=== PATIENT | female | born 1955 | race Caucasian/White ===

== ENCOUNTER → 2018-01-11 | Outpatient (CLI) | payer OTHER ==
[2018-01-11 16:26] VITALS: BP 105/72; PULSE 70; TEMP 97.3; BMI 36.8
--- NOTE | 2018-01-11 17:06 | P.HPOB ---
History of Present Illness H&P Date: 01/11/18 Chief Complaint: The patient is here for her routine gynecologic exam and mammogram. This is a 62-year-old G0 with an LMP of approximately 2005. The patient is without gynecologic complaints. She states she has not been sexually active for many years. She had an abnormal Pap smear on 01/26/2017 which showed ascus and had a negative high-risk HPV reflex. I had recommended to repeat the path with HPV testing after 2 to 3 years, but she feels strongly that she would like to have the Pap smear repeated today. I had recommended a colonoscopy last year when she had heme positive stool. She states she did not have it done because she had an emergency gallbladder surgery. Her surgeon then left town. She states her primary caregiver is now arranging for colonoscopy to be done by Dr. Walters. Review of Systems The patient has gained about 17 pounds over the last year. She denies respiratory or cardiac problems. G.I.: she has had some belching type gas intermittently. She also states she has been less energetic recently. Past Medical History Past Medical History: Fibromyalgia, GERD/Reflux, Osteoarthritis (OA), Thyroid Disorder (Hypothyroid) Additional Past Medical History / Comment(s): diverticulosis, degenerative disc disease in her back and neck, migraines, and diverticular disease. 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 History of Any Multi-Drug Resistant Organisms: None Reported Past Surgical History: Bowel Resection, Cholecystectomy, Tonsillectomy Additional Past Surgical History / Comment(s): Ganglion cyst removed from left ankle, rectal cysts removed Past Anesthesia/Blood Transfusion Reactions: No Reported Reaction Past Psychological History: ADD/ADHD, Anxiety, Depression Smoking Status: Never smoker Past Alcohol Use History: None Reported Past Drug Use History: None Reported Additional History: She is single and is not seeing anybody at this time and is not sexually active. She is disabled. - Past Family History Mother Family Medical History: Cancer (Renal and lung cancer.), CVA/TIA Additional Family Medical History / Comment(s): kidney cancer Father Family Medical History: Myocardial Infarction ([place]) Brother(s) Family Medical History: Diabetes Mellitus Medications and Allergies Home Medications Medication Instructions Recorded Confirmed Type Butalb/APAP/Caff 50-325-40Mg 1 tab PO BID PRN 03/03/17 01/11/18 History [Fioricet 50-325-40] Cyclobenzaprine [Flexeril] 10 mg PO BID PRN 03/03/17 01/11/18 History Ergocalciferol [Vitamin D2] 50,000 unit PO Q14D 03/03/17 01/11/18 History HYDROcodone/APAP 7.5-325MG [[place] 1 tab PO BID PRN 03/03/17 01/11/18 History 7.5-325] Levothyroxine Sodium [Synthroid] 125 mcg PO DAILY 03/03/17 01/11/18 History Methylphenidate HCl [Ritalin] 20 mg PO TID 03/03/17 03/03/17 History Multivitamins, Thera [Multivitamin 1 tab PO DAILY 03/03/17 01/11/18 History (formulary)] [place]-3 Fatty Acids [[place]-3] 1,000 mg PO DAILY 03/03/17 01/11/18 History Omeprazole [PriLOSEC] 20 mg PO DAILY 03/03/17 01/11/18 History Propranolol HCl 40 mg PO DAILY 03/03/17 01/11/18 History Topiramate [Topamax] 100 mg PO DAILY 03/03/17 01/11/18 History Vitamin B Complex 1 cap PO DAILY 03/03/17 01/11/18 History buPROPion HCL [Wellbutrin SR] 150 mg PO TID 03/03/17 01/11/18 History traZODone HCL 150 mg PO HS 03/03/17 01/11/18 History Allergies Allergy/AdvReac Type Severity Reaction Status Date / Time Iodinated Contrast- Oral and Allergy Rash/Hives Verified 01/11/18 16:14 IV Dye Penicillins Allergy Unknown Verified 01/11/18 16:14 sumatriptan [From Imitrex] Allergy Unknown Verified 01/11/18 16:14 Exam Vital Signs Temp Pulse BP 01/11/18 16:07 97.3 F L 70 105/72 Intake and Output 01/11/18 01/11/18 01/11/18 06:59 14:59 22:59 Other: Weight 97.522 kg Height 5'4", weight 215 pounds, BMI 36.9. This is a well-developed well-nourished obese white female who is alert and oriented times 3 in no acute distress. HEENT: Within normal limits. NECK: Supple without mass or thyromegaly. CHEST AND LUNGS: Clear to auscultation. HEART: Regular rate and rhythm. BREASTS: Are without mass or discharge. AXILLARY EXAM: Negative for adenopathy. BACK: Negative for CVA tenderness. ABDOMEN: Soft, obese, nontender, without palpable masses. PELVIC EXAM: Normal external genitalia with mild atrophy. Cervix and vagina appear normal with mild atrophy. There is no unusual discharge. There is no evidence of prolapse. The uterus is midposition, nongravid size and nontender. There are no palpable adnexal masses or tenderness. Bimanual examination is somewhat limited secondary to her size. RECTAL EXAM: rectal vaginal exam is negative for mass or tenderness and is negative for occult blood. EXTREMITIES: Nontender. IMPRESSION: 1. 62-year-old menopausal female with normal gynecologic exam. 2. Previous ascus Pap smear with negative high-risk HPV testing one year ago. The patient feels strongly that she would like to have the Pap smear repeated today following the abnormal Pap smear. 3. Previous Hemoccult positive stool on exam last year with negative Hemoccult testing today. PLAN: 1. Pap smear was performed per the patient's request for the follow-up of her abnormal Pap smear last year. 2. Self breast awareness was discussed with the patient. 3. Screening mammogram will be done today. 4. Colonoscopy was recommended last year and was not done. I have again recommended doing a colonoscopy since it is been about 9 years since her last one even though Hemoccult testing was negative today. She states the colonoscopy is being arranged by her primary health care provider to see Dr. Castillo for the colonoscopy. 5. She will return in one year and PRN.
--- NOTE | 2018-01-13 13:37 | MM ---
Reason for exam: screening (asymptomatic). Last mammogram was performed 6 years and 11 months ago. History: Patient is postmenopausal and is nulliparous. Family history of breast cancer in paternal aunt at age 50. Took hormonal contraceptives for 2 years beginning at age 15. Physical Findings: A clinical breast exam by your physician is recommended on an annual basis and results should be correlated with mammographic findings. MG Screening Mammo w CAD Bilateral CC and MLO view(s) were taken. Prior study comparison: February 03, 2011, bilateral digital screening mammo w/CAD. January 22, 2010, bilateral digital screening mammogram. There are scattered fibroglandular densities. Benign oil cyst calcifications on the right breast. No significant changes when compared with prior studies. ASSESSMENT: Negative, BI-RAD 1 RECOMMENDATION: Routine screening mammogram of both breasts in 1 year.
== END | disposition home or self-care (01) ==
LOC: WWCWWP 15:59
PROVIDERS: ATTEND Obstetrics & Gynecology
DX: Z12.31 Encounter for screening mammogram for malignant neoplasm of breast (principal)
CPT/HCPCS: 77067

== ENCOUNTER → 2018-08-05 | Outpatient (CLI) | payer OTHER | END | disposition home or self-care (01) | LOC: LABWHC1 12:22 | PROVIDERS: ATTEND Nurse Practitioner Acute Care | DX: I49.9 Cardiac arrhythmia, unspecified (principal) | CPT/HCPCS: 36415; 93005 ==

== ENCOUNTER → 2018-09-06 | Outpatient (CLI) | payer OTHER ==
--- NOTE | 2018-09-06 16:03 | CT ---
EXAMINATION TYPE: CT CervThorLumbar spine wo con DATE OF EXAM: 09/06/2018 COMPARISON: None HISTORY: Cervicalagia CT DLP: 3168.5 mGycm Automated exposure control for dose reduction was used. Helical imaging through the cervical thoracic , lumbar spine FINDINGS: There is a scoliotic curvature which is S-shaped within the thoracolumbar spine. Cervical vertebral bodies are intact and show preserved height, alignment, and bone mineralization. M ultilevel spondylosis present in the thoracic spine. At T11-12 there is a segmentation anomaly of the vertebral bodies. Mild kyphosis centered at this level. There is no evident foraminal encroachment o r significant spinal stenosis within the thoracic spine. Facet arthropathy changes are present in the lower lumbar spine. Spinal curvature contributes to caus e some foraminal encroachment. Lateral extension of endplate disc complex L4-5 causes foraminal encro achment as on the right at L3-4. Lumbar vertebral bodies show preserved height. There is multilevel s pondylosis. Loss of disc height present at intervertebral levels with exception of L5-S1. Vacuum phen omenon present at the intervertebral levels. Spinal stenosis present at L4-5, hypertrophic changes of the facets with posterior extension endplate disc complex results in a trefoil appearance of the the yuan sac. Postop changes in the rectosigmoid junction level. IMPRESSION: DEGENERATIVE DISC DISEASE, FACET ARTHROPATHY, SPINAL STENOSIS IN THE LUMBAR SPINE DESCRIBED. SCOLI OSIS. NO SIGNIFICANT DEGENERATIVE DISC DISEASE IN THE CERVICAL SPINE. Additional findings above.
== END ==
LOC: RADCTMAIN 15:20
PROVIDERS: ATTEND Psychiatry & Neurology Neurology
DX: M48.04 Spinal stenosis, thoracic region (principal); M48.061 Spinal stenosis, lumbar region without neurogenic claudication; M47.814 Spondylosis without myelopathy or radiculopathy, thoracic region; M50.30 Other cervical disc degeneration, unspecified cervical region; M51.36 Other intervertebral disc degeneration, lumbar region; M46.96 Unspecified inflammatory spondylopathy, lumbar region; M40.294 Other kyphosis, thoracic region
CPT/HCPCS: 72125; 72128; 72131

== ENCOUNTER → 2020-02-13 | Outpatient (CLI) | payer OTHER ==
--- NOTE | 2020-02-14 08:02 | CT ---
EXAMINATION TYPE: CT shoulder RT wo con DATE OF EXAM: 02/13/2020 COMPARISON: None HISTORY: right shoulder pain, no injury CT DLP: 674.2 mGycm Automated exposure control for dose reduction was used. Technique: Axial images 3 mm thick sections. Reconstructed images coronal and sagittal planes. Three- D reconstructed images performed by the technologist are reviewed on the computer. FINDINGS: No acute fractures or dislocations are evident. There is mild narrowing of the glenohumeral joint space. Slight elevation of the humerus in relation to the glenoid is present. Acromiohumeral space is preserved. No suspicious joint effusion is evident . No acute fractures are evident. IMPRESSION: OSTEOARTHRITIC DEGENERATIVE CHANGE LIKELY PRESENT AT THE RIGHT SHOULDER
== END | disposition home or self-care (01) ==
LOC: RADCTMAIN 17:13
PROVIDERS: ATTEND Psychiatry & Neurology Neurology
DX: M19.011 Primary osteoarthritis, right shoulder (principal); M25.511 Pain in right shoulder

== ENCOUNTER → 2020-06-11 | Outpatient (CLI) | payer OTHER ==
[2020-06-11 14:15] VITALS: BP 137/86; PULSE 87; RESP 18; TEMP 97.6
--- NOTE | 2020-06-11 15:20 | P.HPOB ---
History of Present Illness H&P Date: 06/11/20 Chief Complaint: The patient is here for her routine gynecologic exam and ma mmogram. This is a 64-year-old G0 with an LMP of 2005. The patient is without gynecologic complaints and denies any postmenopausal bleeding. Review of Systems She has gained about 16 pounds over the past 2 years. She denies respiratory or cardiac problems. GI: Occasional constipation and loose stools. She is seeing Dr. Sebastian for this and plans on getting a colonoscopy in the near future. Past Medical History Past Medical History: Fibromyalgia, GERD/Reflux, Osteoarthritis (OA), Renal Disease, Thyroid Disorder Additional Past Medical History / Comment(s): diverticulosis, degenerative disc disease in her back and neck, migraines, and diverticular disease. Decreased renal function. 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 History of Any Multi-Drug Resistant Organisms: None Reported Past Surgical History: Bowel Resection, Cholecystectomy, Tonsillectomy Additional Past Surgical History / Comment(s): Ganglion cyst removed from left ankle, rectal cysts removed Past Anesthesia/Blood Transfusion Reactions: No Reported Reaction Past Psychological History: ADD/ADHD, Anxiety, Depression Smoking Status: Never smoker Past Alcohol Use History: None Reported Past Drug Use History: None Reported Additional History: She is single and is not seeing anybody this time and is not sexually active. She is disabled. - Past Family History Mother Family Medical History: Cancer, CVA/TIA Additional Family Medical History / Comment(s): kidney cancer Father Family Medical History: Myocardial Infarction ([place]) Brother(s) Family Medical History: Diabetes Mellitus Medications and Allergies Home Medications Medication Instructions Recorded Confirmed Type Butalb/APAP/Caff 50-325-40Mg 1 tab PO BID PRN 03/03/17 01/11/18 History [Fioricet 50-325-40] Ergocalciferol [Vitamin D2] 50,000 unit PO Q14D 03/03/17 01/11/18 History HYDROcodone/APAP 7.5-325MG [[place] 1 tab PO BID PRN 03/03/17 01/11/18 History 7.5-325] Levothyroxine Sodium [Synthroid] 125 mcg PO DAILY 03/03/17 01/11/18 History Methylphenidate HCl [Ritalin] 20 mg PO TID 03/03/17 03/03/17 History Multivitamins, Thera [Multivitamin 1 tab PO DAILY 03/03/17 01/11/18 History (formulary)] [place]-3 Fatty Acids [[place]-3] 1,000 mg PO DAILY 03/03/17 01/11/18 History Omeprazole [PriLOSEC] 20 mg PO DAILY 03/03/17 01/11/18 History Propranolol HCl 40 mg PO DAILY 03/03/17 01/11/18 History Vitamin B Complex 1 cap PO DAILY 03/03/17 01/11/18 History buPROPion HCL [Wellbutrin SR] 150 mg PO TID 03/03/17 01/11/18 History traZODone HCL 150 mg PO HS 03/03/17 01/11/18 History Brexpiprazole [Rexulti] 3 mg PO DAILY 06/11/20 06/11/20 History Fenofibrate 160 mg PO DAILY 06/11/20 06/11/20 History Topiramate [Trokendi Xr] 100 mg PO DAILY 06/11/20 06/11/20 History metFORMIN HCL [Glucophage] 500 mg PO BID 06/11/20 06/11/20 History Allergies Allergy/AdvReac Type Severity Reaction Status Date / Time Iodinated Contrast Media Allergy Rash/Hives Verified 06/11/20 14:00 [Iodinated Contrast- Oral and IV Dye] Penicillins Allergy Unknown Verified 06/11/20 14:00 sumatriptan [From Imitrex] Allergy Unknown Verified 06/11/20 14:00 Exam Vital Signs Temp Pulse Resp BP Pulse Ox 06/11/20 14:06 97.6 F 87 18 137/86 98 Intake and Output 06/10/20 06/11/20 06/11/20 22:59 06:59 14:59 Other: Weight 104.78 kg Height 5 feet 2 inches, weight 231 pounds, BMI 42.3.\ This is a well-developed well-nourished obese white female who is alert and oriented times 3 in no acute distress. HEENT: Within normal limits. NECK: Supple without mass or thyromegaly. CHEST AND LUNGS: Clear to auscultation. HEART: Regular rate and rhythm. BREASTS: Are without mass or discharge. AXILLARY EXAM: Negative for adenopathy. BACK: Negative for CVA tenderness. ABDOMEN: Soft, nontender, without palpable masses. PELVIC EXAM: Normal external genitalia with mild atrophy. Cervix and vagina appear normal mild atrophy. There is no unusual discharge. There is no evidence of prolapse. The uterus is midposition, nongravid size and nontender. There are no palpable adnexal masses or tenderness. Bimanual examination is somewhat limited secondary to her size. RECTAL EXAM: Rectovaginal exam is negative for mass or tenderness and is negative for occult blood. EXTREMITIES: Nontender. IMPRESSION: 1. 64-year-old menopausal female with normal gynecologic exam. 2. Obesity. PLAN: 1. Pap smear cotest was performed. 2. Self breast awareness was discussed with the patient. 3. Screening mammogram will be done today. 4. Osteoporosis prevention was discussed. I have stressed the importance of adequate calcium, vitamin D and regular exercise. Recommended amounts of calcium and vitamin D were also discussed. Bone density testing was recommended. The order slip was given to the patient for this. 5. The patient states she is planning on getting a colonoscopy in the near future with Dr. Hernandez. 6. She was advised to return in one year for her annual well woman exam.
--- NOTE | 2020-06-12 10:54 | MM ---
Reason for exam: screening (asymptomatic). Last mammogram was performed 2 years and 5 months ago. History: Patient is postmenopausal and is nulliparous. Family history of breast cancer in paternal aunt at age 50. Took hormonal contraceptives for 2 years beginning at age 15. Physical Findings: A clinical breast exam by your physician is recommended on an annual basis and results should be correlated with mammographic findings. MG Screening Mammo w CAD Bilateral CC and MLO view(s) were taken. Prior study comparison: January 11, 2018, bilateral MG screening mammo w CAD. The breast tissue is almost entirely fat. There are benign appearing regional round calcifications in the right breast. There is no discrete abnormality. ASSESSMENT: Benign, BI-RAD 2 RECOMMENDATION: Routine screening mammogram of both breasts in 1 year.
== END ==
LOC: WWCWWP 13:51
PROVIDERS: ATTEND Obstetrics & Gynecology
DX: Z01.419 Encounter for gynecological examination (general) (routine) without abnormal findings (principal); E66.9 Obesity, unspecified; M19.90 Unspecified osteoarthritis, unspecified site; F90.9 Attention-deficit hyperactivity disorder, unspecified type; F32.9 Major depressive disorder, single episode, unspecified; F41.9 Anxiety disorder, unspecified; Z68.41 Body mass index [BMI] 40.0-44.9, adult; Z12.31 Encounter for screening mammogram for malignant neoplasm of breast; Z80.51 Family history of malignant neoplasm of kidney
CPT/HCPCS: 77067

== ENCOUNTER 2021-04-07 16:55 | Emergency (ER) | payer MEDICARE, OTHER ==
[2021-04-07 17:00] VITALS: RESP 16; TEMP 97.3
[2021-04-07 18:03] LABS: Basophils # (A) 0.1 k/uL (0-0.2); Basophils % (A) 1 %; Eosinophils # (A) 0.4 k/uL (0-0.7); Eosinophils % (A) 5 %; HCT 42.8 % (34.0-46.0); HGB 14.4 gm/dL (11.4-16.0); Lymphocytes # (A) 2.6 k/uL (1.0-4.8); Lymphocytes % (A) 30 %; MCH 30.3 pg (25.0-35.0); MCHC 33.6 g/dL (31.0-37.0); MCV 90.2 fL (80.0-100.0); Monocytes # (A) 0.6 k/uL (0-1.0); Monocytes % (A) 6 %; Neutrophils # (A) 4.8 k/uL (1.3-7.7); Neutrophils % (A) 56 %; Platelet Count 370 k/uL (150-450); RBC 4.74 m/uL (3.80-5.40); RDW 12.7 % (11.5-15.5); WBC 8.6 k/uL (3.8-10.6)
[2021-04-07 18:14] LABS: Appearance,Urine Clear (Clear); Bilirubin,Urine Negative (Negative); Blood,Urine Negative (Negative); Color,Urine Light Yellow; Glucose,Urine (UA) Negative (Negative); Ketones,Urine Negative (Negative); Leukocyte Esterase,Urine Large (Negative); Nitrite,Urine Negative (Negative); PH, Urine 5.5 (5.0-8.0); Protein,Urine Negative (Negative); RBC,Urine 1 /hpf (0-5); Squamous Epithelial Cell,Urine <1 /hpf (0-4); Urobilinogen,Urine <2.0 mg/dL (<2.0); WBC,Urine 14 /hpf (0-5)
[2021-04-07 18:14] LABS: Albumin 4.3 g/dL (3.5-5.0); Calcium 10.1 mg/dL (8.4-10.2); Potassium 4.2 mmol/L (3.5-5.1); Total Bilirubin 0.4 mg/dL (0.2-1.3); Total Protein 7.8 g/dL (6.3-8.2)
--- NOTE | 2021-04-07 19:04 | ED ---
General Adult HPI - General Chief complaint: Abdominal Pain Stated complaint: Abdominal Pain Time Seen by Provider: 04/07/21 18:50 Source: patient, RN notes reviewed, old records reviewed Mode of arrival: ambulatory Limitations: no limitations - History of Present Illness Initial comments: 65-year-old female alert and oriented 4 presents with right lower quadrant abdominal pain since . Patient states that it seems to be spreading from one area diffusely through the belly. She denies any nausea vomiting or diarrhea she says she has had no fevers. She states that she has been increasingly thirsty. She does have history of a bowel resection, diverticulosis, renal disease and cholecystectomy. -: days(s) (5) Location: abdomen (rlq pain) Radiation: abdomen (diffusely through abdomen) Severity scale (1-10): 8 Quality: other (cramping) Consistency: intermittent, now resolved Improves with: immobilization Worsens with: movement Associated Symptoms: other (abdominal bloating) Treatments Prior to Arrival: none - Related Data Home Medications Medication Instructions Recorded Confirmed Levothyroxine Sodium [Synthroid] 125 mcg PO DAILY 03/03/17 04/07/21 Methylphenidate HCl [Ritalin] 20 mg PO TID 03/03/17 04/07/21 Multivitamins, Thera [Multivitamin 1 tab PO DAILY 03/03/17 04/07/21 (formulary)] [place]-3 Fatty Acids [[place]-3] 1,000 mg PO DAILY 03/03/17 04/07/21 buPROPion HCL [Wellbutrin SR] 150 mg PO TID 03/03/17 04/07/21 traZODone HCL 150 mg PO HS 03/03/17 04/07/21 Brexpiprazole [Rexulti] 3 mg PO DAILY 06/11/20 04/07/21 Fenofibrate 160 mg PO DAILY 06/11/20 04/07/21 Topiramate [Trokendi Xr] 100 mg PO DAILY 06/11/20 04/07/21 Cholecalciferol [Vitamin D3 (125 125 mcg PO DAILY 04/07/21 04/07/21 Mcg = 5000 Iu)] Cyanocobalamin (Vitamin B-12) 1,000 mcg PO DAILY 04/07/21 04/07/21 [Vitamin B-12] Pantoprazole Sodium [Protonix] 20 mg PO DAILY 04/07/21 04/07/21 Propranolol HCl 60 mg PO DAILY 04/07/21 04/07/21 metFORMIN HCL ER [Glucophage XR] 500 mg PO BID 04/07/21 04/07/21 Allergies Allergy/AdvReac Type Severity Reaction Status Date / Time Iodinated Contrast Media Allergy Rash/Hives Verified 04/07/21 21:07 [Iodinated Contrast- Oral and IV Dye] Penicillins Allergy Unknown Verified 04/07/21 21:07 sumatriptan [From Imitrex] Allergy Unknown Verified 04/07/21 21:07 Review of Systems ROS Statement: Those systems with pertinent positive or pertinent negative responses have been documented in the HPI. ROS Other: All systems not noted in ROS Statement are negative. Past Medical History Past Medical History: Fibromyalgia, GERD/Reflux, Osteoarthritis (OA), Renal Disease, Thyroid Disorder Additional Past Medical History / Comment(s): diverticulosis, degenerative disc disease in her back and neck, migraines, and diverticular disease. Decreased renal function. 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 History of Any Multi-Drug Resistant Organisms: None Reported Past Surgical History: Bowel Resection, Cholecystectomy, Tonsillectomy Additional Past Surgical History / Comment(s): Ganglion cyst removed from left ankle, rectal cysts removed Past Anesthesia/Blood Transfusion Reactions: No Reported Reaction Past Psychological History: ADD/ADHD, Anxiety, Depression Smoking Status: Never smoker Past Alcohol Use History: None Reported Past Drug Use History: None Reported - Past Family History Mother Family Medical History: Cancer, CVA/TIA Additional Family Medical History / Comment(s): kidney cancer Father Family Medical History: Myocardial Infarction ([place]) Brother(s) Family Medical History: Diabetes Mellitus General Exam Limitations: no limitations General appearance: alert, in no apparent distress Eye exam: Present: normal appearance. Absent: scleral icterus, conjunctival in jection ENT exam: Present: normal exam, normal oropharynx, mucous membranes moist Respiratory exam: Present: normal lung sounds bilaterally. Absent: respiratory distress, chest wall tenderness, accessory muscle use Cardiovascular Exam: Present: regular rate, normal rhythm, normal heart sounds. Absent: systolic murmur, diastolic murmur, rubs, gallop, clicks GI/Abdominal exam: Present: soft, tenderness, rebound, normal bowel sounds. Absent: distended, guarding, rigid Extremities exam: Present: normal capillary refill. Absent: tenderness, calf tenderness Back exam: Present: normal inspection. Absent: tenderness, CVA tenderness (R), CVA tenderness (L), rash noted Neurological exam: Present: alert, oriented X3 Psychiatric exam: Present: normal affect, normal mood Skin exam: Present: warm, dry, intact, normal color. Absent: cyanosis, diaphoretic Course Vital Signs 04/07/21 16:58 Temperature 97.3 F L Pulse Rate 65 Respiratory 16 Rate Blood Pressure 115/71 O2 Sat by Pulse 100 Oximetry Medical Decision Making - Medical Decision Making CT shows a ventral hernia patient does see Dr. Hernandez and is scheduled to have a colonoscopy from her bowel resection in 2008. She will be given referral to surgery Dr. mullins for the hernia. Case discussed with Dr. Angel. Patient is agreeable to this plan of care. - Lab Data Result diagrams: 04/07/21 17:55 04/07/21 17:55 Lab Results 04/07/21 04/07/21 04/07/21 Range/Units 17:55 17:55 18:01 WBC 8.6 (3.8-10.6) k/uL RBC 4.74 (3.80-5.40) m/uL Hgb 14.4 (11.4-16.0) gm/dL Hct 42.8 (34.0-46.0) % MCV 90.2 (80.0-100.0) fL MCH 30.3 (25.0-35.0) pg MCHC 33.6 (31.0-37.0) g/dL RDW 12.7 (11.5-15.5) % Plt Count 370 (150-450) k/uL MPV 7.0 Neutrophils % 56 % Lymphocytes % 30 % Monocytes % 6 % Eosinophils % 5 % Basophils % 1 % Neutrophils # 4.8 (1.3-7.7) k/uL Lymphocytes # 2.6 (1.0-4.8) k/uL Monocytes # 0.6 (0-1.0) k/uL Eosinophils # 0.4 (0-0.7) k/uL Basophils # 0.1 (0-0.2) k/uL Sodium 141 (137-145) mmol/L Potassium 4.2 (3.5-5.1) mmol/L Chloride 107 (98-107) mmol/L Carbon Dioxide 24 (22-30) mmol/L Anion Gap 10 mmol/L BUN 23 H (7-17) mg/dL Creatinine 1.34 H (0.52-1.04) mg/dL Est GFR (CKD-EPI)AfAm 48 (>60 ml/min/1.73 sqM) Est GFR (CKD-EPI)NonAf 42 (>60 ml/min/1.73 sqM) Glucose 111 H (74-99) mg/dL Calcium 10.1 (8.4-10.2) mg/dL Total Bilirubin 0.4 (0.2-1.3) mg/dL AST 25 (14-36) U/L ALT 17 (4-34) U/L Alkaline Phosphatase 68 (38-126) U/L Total Protein 7.8 (6.3-8.2) g/dL Albumin 4.3 (3.5-5.0) g/dL Amylase 53 (30-110) U/L Lipase 210 (23-300) U/L Urine Color Light Yellow Urine Appearance Clear (Clear) Urine pH 5.5 (5.0-8.0) Ur Specific [place] 1.010 (1.001-1.035) Urine Protein Negative (Negative) Urine Glucose (UA) Negative (Negative) Urine Ketones Negative (Negative) Urine Blood Negative (Negative) Urine Nitrite Negative (Negative) Urine Bilirubin Negative (Negative) Urine Urobilinogen <2.0 (<2.0) mg/dL Ur Leukocyte Esterase Large H (Negative) Urine RBC 1 (0-5) /hpf Urine WBC 14 H (0-5) /hpf Ur Squamous Epith Cells <1 (0-4) /hpf Disposition Clinical Impression: Ventral hernia, Kidney disease Disposition: HOME SELF-CARE Condition: Good Instructions (If sedation given, give patient instructions): Ventral Hernia ( ED) Additional Instructions: Follow-up with Dr. Mullins for ventral hernia. Make an appointment for your colonoscopy and follow-up with Dr. Sebastian as she instructed. Follow-up with your travel assistant regarding your kidney function, your BUN 23, creatinine 1.34, GFR 42. Return to the emergency room if any new or worsening symptoms including increased pain, vomiting or inability to pass stool. Is patient prescribed a controlled substance at d/c from ED?: No Referrals: [facility] [Primary Care Provider] - 1-2 days Giovany Mullins MD [STAFF PHYSICIAN] - 1-2 days Time of Disposition: 21:20
--- NOTE | 2021-04-07 20:27 | CT ---
EXAMINATION TYPE: CT abdomen pelvis wo con DATE OF EXAM: 04/07/2021 COMPARISON: 03/03/2017 HISTORY: RLQ pain CT DLP: 1270.4 mGycm Automated exposure control for dose reduction was used. Images obtained from the diaphragm to the floor the pelvis with no contrast. The lung bases are clear. There is no pleural effusion. Heart size is normal. There is no pericardial effusion. Liver spleen and stomach pancreas appear intact. The bile ducts are not dilated. There are clips from cholecystectomy. There is no adrenal mass. Kidneys show normal size and contour. There is no hydronephrosis. There is 5.4 cm cyst on the posterior right kidney. Ureters are not dilated. There is no retroperitoneal adeno rakan. There is broad-based anterior abdominal wall hernia containing bowel. There is no inguinal her alvin. There are sigmoid diverticula. There are clips at the rectosigmoid junction. There is no sign of diverticulitis. There are also numerous diverticula in the remainder of the colon. The appendix appe ars normal. There is no mesenteric edema. There is no ascites or free air. There is no bowel obstruction. The lum bar vertebrae have normal alignment. There is degenerative disc space narrowing throughout the lumbar spine. There is spurring and vacuum disc. There is no compression fracture. The bony pelvis is intac t. Hip joints appear intact. IMPRESSION: No acute abnormality within the abdomen and pelvis. There is a large broad-based lower abdominal wall ventral hernia measuring approximately 18 cm in diameter which is increased compared to old exam. Colonic diverticulosis without diverticulitis.
[2021-04-07 21:31] VITALS: BP 118/78; PULSE 60
== END 2021-04-07 21:31 | disposition home or self-care (01) ==
LOC: EC 16:55
DX: K43.9 Ventral hernia without obstruction or gangrene (principal); N28.9 Disorder of kidney and ureter, unspecified; M79.7 Fibromyalgia; K21.9 Gastro-esophageal reflux disease without esophagitis; M19.90 Unspecified osteoarthritis, unspecified site; E07.9 Disorder of thyroid, unspecified; F90.9 Attention-deficit hyperactivity disorder, unspecified type; F41.9 Anxiety disorder, unspecified; F32.A Depression, unspecified; Z79.84 Long term (current) use of oral hypoglycemic drugs; Z88.0 Allergy status to penicillin; Z90.49 Acquired absence of other specified parts of digestive tract
CPT/HCPCS: 36415; 74176; 80053; 81001; 82150; 83690; 85025; 99284

== ENCOUNTER 2021-06-02 15:53 | Emergency (ER) | payer MEDICARE, OTHER ==
[2021-06-02 16:08] VITALS: TEMP 97.6
[2021-06-02 16:40] VITALS: RESP 18
[2021-06-02 17:28] LABS: Basophils # (A) 0.1 k/uL (0-0.2); Basophils % (A) 1 %; Eosinophils # (A) 0.5 k/uL (0-0.7); Eosinophils % (A) 6 %; HCT 40.7 % (34.0-46.0); HGB 13.2 gm/dL (11.4-16.0); Lymphocytes # (A) 2.1 k/uL (1.0-4.8); Lymphocytes % (A) 25 %; MCH 29.3 pg (25.0-35.0); MCHC 32.3 g/dL (31.0-37.0); MCV 90.6 fL (80.0-100.0); Mean Platelet Volume 8.6; Monocytes # (A) 0.5 k/uL (0-1.0); Monocytes % (A) 5 %; Neutrophils # (A) 5.3 k/uL (1.3-7.7); Neutrophils % (A) 62 %; Platelet Count 492 k/uL (150-450); RDW 12.8 % (11.5-15.5); WBC 8.5 k/uL (3.8-10.6)
[2021-06-02 17:47] LABS: Albumin 3.4 g/dL (3.5-5.0); Calcium 9.7 mg/dL (8.4-10.2); Potassium 4.5 mmol/L (3.5-5.1); Total Bilirubin 0.5 mg/dL (0.2-1.3); Total Protein 6.6 g/dL (6.3-8.2)
--- NOTE | 2021-06-02 19:12 | ED ---
General Adult HPI - General Chief complaint: Recheck/Abnormal Lab/Rx Stated complaint: Hemorrhage Time Seen by Provider: 06/02/21 16:09 Source: patient, EMS Mode of arrival: EMS Limitations: no limitations - History of Present Illness Initial comments: Patient is a 65-year-old female with [facility] with chief complaint of wound opening. Patient states that today when the home nurse was there they removed the tara on her abdomen. Patient states that later on when having a bowel movement when she felt sudden onset of pain and noticed some blood in the area. She attempted to contact home nursing but stated that the line was too busy. She then presented to the ER. The patient is admitting to some discomfort and mild bleeding. Patient states that she has a follow-up appointment with Dr. Castillo in the office tomorrow. She denies any fever, chills, nausea, vomiting, abdominal pain outside of the wound, diarrhea, constipation, hematochezia, chest pain, shortness of breath, URI-like symptoms, dizziness, loss of consciousness. - Related Data Home Medications Medication Instructions Recorded Confirmed Levothyroxine Sodium [Synthroid] 125 mcg PO DAILY 03/03/17 06/02/21 Methylphenidate HCl [Ritalin] 20 mg PO TID 03/03/17 06/02/21 Multivitamins, Thera [Multivitamin 1 tab PO DAILY 03/03/17 06/02/21 (formulary)] Foster-3 Fatty Acids [Foster-3] 1,000 mg PO DAILY 03/03/17 06/02/21 buPROPion HCL [Wellbutrin SR] 150 mg PO DAILY 03/03/17 06/02/21 traZODone HCL 150 mg PO HS 03/03/17 06/02/21 Fenofibrate 160 mg PO DAILY 06/11/20 06/02/21 Topiramate [Trokendi Xr] 100 mg PO DAILY 06/11/20 06/02/21 Cholecalciferol [Vitamin D3 (125 125 mcg PO DAILY 04/07/21 06/02/21 Mcg = 5000 Iu)] Cyanocobalamin (Vitamin B-12) 1,000 mcg PO DAILY 04/07/21 06/02/21 [Vitamin B-12] Pantoprazole Sodium [Protonix] 20 mg PO DAILY 04/07/21 06/02/21 Propranolol HCl 60 mg PO DAILY 04/07/21 06/02/21 metFORMIN HCL ER [Glucophage XR] 500 mg PO BID 04/07/21 06/02/21 Brexpiprazole [Rexulti] 4 mg PO DAILY 06/02/21 06/02/21 Nystatin 100,000 Unit/gm Powd 1 applic TOPICAL BID PRN 06/02/21 06/02/21 [Mycostatin Powder] buPROPion SR [Wellbutrin SR] 300 mg PO HS 06/02/21 06/02/21 Allergies Allergy/AdvReac Type Severity Reaction Status Date / Time Iodinated Contrast Media Allergy Rash/Hives Verified 06/02/21 18:57 [Iodinated Contrast- Oral and IV Dye] Penicillins Allergy YEAST Verified 06/02/21 18:57 INFECTION sumatriptan [From Imitrex] Allergy THROAT Verified 06/02/21 18:57 SWELLING Review of Systems ROS Statement: Those systems with pertinent positive or pertinent negative responses have been documented in the HPI. ROS Other: All systems not noted in ROS Statement are negative. Past Medical History Past Medical History: Diabetes Mellitus, Fibromyalgia, GERD/Reflux, Osteoarthritis (OA), Renal Disease, Thyroid Disorder Additional Past Medical History / Comment(s): diverticulosis, degenerative disc disease in her back and neck, migraines, and diverticular disease. Decreased renal function. History of Any Multi-Drug Resistant Organisms: None Reported Past Surgical History: Bowel Resection, Cholecystectomy, Tonsillectomy Additional Past Surgical History / Comment(s): Ganglion cyst removed from left ankle, rectal cysts removed, COLONOSCOPY, EGD, Past Anesthesia/Blood Transfusion Reactions: No Reported Reaction Past Psychological History: ADD/ADHD, Anxiety, Depression Smoking Status: Never smoker Past Alcohol Use History: None Reported Past Drug Use History: None Reported - Past Family History Mother Family Medical History: Cancer, CVA/TIA Additional Family Medical History / Comment(s): kidney cancer Father Family Medical History: Myocardial Infarction ([place]) Brother(s) Family Medical History: Diabetes Mellitus General Exam Limitations: no limitations General appearance: alert, in no apparent distress Head exam: Present: atraumatic, normocephalic, normal inspection Eye exam: Present: normal appearance, EOMI. Absent: scleral icterus ENT exam: Present: normal exam Neck exam: Present: normal inspection Respiratory exam: Present: normal lung sounds bilaterally. Absent: respiratory distress, wheezes, rales, rhonchi, stridor Cardiovascular Exam: Present: regular rate, normal rhythm, normal heart sounds. Absent: systolic murmur, diastolic murmur, rubs, gallop, clicks GI/Abdominal exam: Present: soft, normal bowel sounds, other (Wound dehiscence inferior to the umbilicus). Absent: distended, tenderness, guarding, rebound, rigid Neurological exam: Present: alert, oriented X3, CN II-XII intact Psychiatric exam: Present: normal affect, normal mood Skin exam: Present: warm, dry, intact, normal color. Absent: rash Course Vital Signs 06/02/21 06/02/21 16:02 19:13 Temperature 97.6 F Pulse Rate 77 66 Respiratory 18 18 Rate Blood Pressure 109/67 106/56 O2 Sat by Pulse 99 96 Oximetry Medical Decision Making - Medical Decision Making Patient is a 65-year-old female presenting with chief complaint of wound dehiscence. Patient had hernia repair surgery performed by Dr. Castillo on 05/14/21, today homecare nurse removed tara. Patient states that while having a bowel movement she felt sudden onset pain and noticed some blood below the level of the umbilicus. On exam there is an approximately 6 cm area of wound dehiscence, subcutaneous fat is visible but no internal organs noted on exam. CBC and CMP were obtained to rule out possibility of infection, studies were negative. I contacted Dr. Walters, his recommendation was to pack with wet-to-dry dressing and have her follow-up in the office. Wound was packed with wet-to-dry dressing, I instructed her to follow-up with Dr. Walters in the office tomorrow. Keep wound clean and covered. I instructed the patient on return parameters and answered all questions. Additionally follow-up with PCP this week. Report back to ER if any worsening symptoms. She conveyed verbal understanding and agreed to the plan. - Lab Data Result diagrams: 06/02/21 17:10 06/02/21 17:10 Lab Results 06/02/21 06/02/21 06/02/21 Range/Units 17:10 17:10 17:10 WBC 8.5 (3.8-10.6) k/uL RBC 4.50 (3.80-5.40) m/uL Hgb 13.2 (11.4-16.0) gm/dL Hct 40.7 (34.0-46.0) % MCV 90.6 (80.0-100.0) fL MCH 29.3 (25.0-35.0) pg MCHC 32.3 (31.0-37.0) g/dL RDW 12.8 (11.5-15.5) % Plt Count 492 H (150-450) k/uL MPV 8.6 Neutrophils % 62 % Lymphocytes % 25 % Monocytes % 5 % Eosinophils % 6 % Basophils % 1 % Neutrophils # 5.3 (1.3-7.7) k/uL Lymphocytes # 2.1 (1.0-4.8) k/uL Monocytes # 0.5 (0-1.0) k/uL Eosinophils # 0.5 (0-0.7) k/uL Basophils # 0.1 (0-0.2) k/uL Sodium 137 (137-145) mmol/L Potassium 4.5 (3.5-5.1) mmol/L Chloride 108 H (98-107) mmol/L Carbon Dioxide 23 (22-30) mmol/L Anion Gap 6 mmol/L BUN 14 (7-17) mg/dL Creatinine 1.05 H (0.52-1.04) mg/dL Est GFR (CKD-EPI)AfAm 64 (>60 ml/min/1.73 sqM) Est GFR (CKD-EPI)NonAf 56 (>60 ml/min/1.73 sqM) Glucose 120 H (74-99) mg/dL Plasma Lactic Acid Xavi 1.3 (0.7-2.0) mmol/L Calcium 9.7 (8.4-10.2) mg/dL Total Bilirubin 0.5 (0.2-1.3) mg/dL AST 23 (14-36) U/L ALT 16 (4-34) U/L Alkaline Phosphatase 61 (38-126) U/L Total Protein 6.6 (6.3-8.2) g/dL Albumin 3.4 L (3.5-5.0) g/dL Disposition Clinical Impression: Wound dehiscence Disposition: HOME SELF-CARE Condition: Good Instructions (If sedation given, give patient instructions): Wound Dehiscence (ED) Additional Instructions: Follow-up with Dr. Walters tomorrow in the office. Follow-up with primary care this week. Report back to ER with any worsening symptoms, including but not limited to increased pain, bleeding, abdominal pain, nausea, vomiting, fever, chills. Keep wound clean, dry, covered. Is patient prescribed a controlled substance at d/c from ED?: No Referrals: [facility] [Primary Care Provider] - 1-2 days Giovany Walters MD [Family Provider] - 1-2 days Time of Disposition: 19:56
[2021-06-02 19:21] VITALS: BP 106/56; PULSE 66
== END 2021-06-02 20:21 | disposition home or self-care (01) ==
LOC: EC 15:53
DX: T81.30XA Disruption of wound, unspecified, initial encounter (principal); E11.9 Type 2 diabetes mellitus without complications; M79.7 Fibromyalgia; K21.9 Gastro-esophageal reflux disease without esophagitis; M19.90 Unspecified osteoarthritis, unspecified site; E07.9 Disorder of thyroid, unspecified; F41.9 Anxiety disorder, unspecified; F32.A Depression, unspecified; Z79.84 Long term (current) use of oral hypoglycemic drugs; Z88.0 Allergy status to penicillin; Z90.49 Acquired absence of other specified parts of digestive tract; F90.9 Attention-deficit hyperactivity disorder, unspecified type; Y83.8 Other surgical procedures as the cause of abnormal reaction of the patient, or of later complication, without mention of misadventure at the time of the procedure
CPT/HCPCS: 36415; 80053; 83605; 85025; 87040; 99283

== ENCOUNTER 2021-07-18 05:52 | Inpatient (IN) | payer MEDICARE, OTHER ==
[2021-07-18] MEDS ORDERED: SODIUM CHLORIDE 0.9% 500 ML 500 ML IV STA (05:59)
[2021-07-18] MEDS ORDERED: HYDROmorphone 0.5 MG/0.5 ML SYRINGE IVP STA (05:59)
--- NOTE | 2021-07-18 06:24 | ED ---
General Adult HPI - General Chief complaint: Wound/Laceration Stated complaint: wound reopening Time Seen by Provider: 07/18/21 06:00 Source: patient, EMS, RN notes reviewed, old records reviewed Mode of arrival: EMS Limitations: no limitations - History of Present Illness Initial comments: 65-year-old female, alert and oriented 4, presents to the emergency room with complaints of abdominal wound drainage. Patient had an incisional hernia repair May [address] Walters. States her tara were removed a month ago and there was opening of the wound and she has been getting wound care. States that she was sitting on the couch today and she felt her abdominal binder wet and found her wound was open and draining with surrounding redness. She seen Dr Walters last Wednesday and there were no concerns. She states over the last couple of days she's had some abdominal distention. She describes the pain as 9 out of 10 sharp and constant. She has a copious amount of brown watery liquid draining from wound. She denies any nausea or vomiting. History of diabetes, GERD, diverticulosis, and renal disease. Surgical history of recent hernia re pair, cholecystectomy and bowel resection. She does have an ALLERGY to contrast dye. -: days(s) (1) Location: abdomen Radiation: non-radiation Severity scale (1-10): 9 Quality: sharp Consistency: constant Improves with: none Associated Symptoms: fever/chills Treatments Prior to Arrival: none - Related Data Home Medications Medication Instructions Recorded Confirmed Levothyroxine Sodium [Synthroid] 125 mcg PO DAILY 03/03/17 07/18/21 Methylphenidate HCl [Ritalin] 20 mg PO TID 03/03/17 07/18/21 Multivitamins, Thera [Multivitamin 1 tab PO DAILY 03/03/17 07/18/21 (formulary)] [place]-3 Fatty Acids [[place]-3] 1,000 mg PO DAILY 03/03/17 07/18/21 buPROPion HCL [Wellbutrin SR] 150 mg PO DAILY 03/03/17 07/18/21 traZODone HCL 150 mg PO HS 03/03/17 07/18/21 Fenofibrate 160 mg PO DAILY 06/11/20 07/18/21 Topiramate [Trokendi Xr] 100 mg PO DAILY 06/11/20 07/18/21 Cholecalciferol [Vitamin D3 (125 125 mcg PO DAILY 04/07/21 07/18/21 Mcg = 5000 Iu)] Cyanocobalamin (Vitamin B-12) 1,000 mcg PO DAILY 04/07/21 07/18/21 [Vitamin B-12] Pantoprazole Sodium [Protonix] 20 mg PO DAILY 04/07/21 07/18/21 Propranolol HCl [Inderal] 60 mg PO DAILY 04/07/21 07/18/21 metFORMIN HCL ER [Glucophage XR] 500 mg PO BID 04/07/21 07/18/21 Brexpiprazole [Rexulti] 4 mg PO DAILY 06/02/21 07/18/21 Nystatin 100,000 Unit/gm Powd 1 applic TOPICAL BID PRN 06/02/21 07/18/21 [Mycostatin Powder] buPROPion SR [Wellbutrin SR] 300 mg PO HS 06/02/21 07/18/21 Allergies Allergy/AdvReac Type Severity Reaction Status Date / Time Iodinated Contrast Media Allergy Rash/Hives Verified 07/18/21 10:21 [Iodinated Contrast- Oral and IV Dye] sumatriptan [From Imitrex] Allergy THROAT Verified 07/18/21 10:21 SWELLING Penicillins AdvReac YEAST Verified 07/18/21 10:21 INFECTION Review of Systems ROS Statement: Those systems with pertinent positive or pertinent negative responses have been documented in the HPI. ROS Other: All systems not noted in ROS Statement are negative. Past Medical History Past Medical History: Diabetes Mellitus, Fibromyalgia, GERD/Reflux, Osteoarthritis (OA), Renal Disease, Thyroid Disorder Additional Past Medical History / Comment(s): diverticulosis, degenerative disc disease in her back and neck, migraines, and diverticular disease. Decreased renal function. History of Any Multi-Drug Resistant Organisms: None Reported Past Surgical History: Bowel Resection, Cholecystectomy, Tonsillectomy Additional Past Surgical History / Comment(s): Ganglion cyst removed from left ankle, rectal cysts removed, COLONOSCOPY, EGD, Past Anesthesia/Blood Transfusion Reactions: No Reported Reaction Past Psychological History: ADD/ADHD, Anxiety, Depression Smoking Status: Never smoker Past Alcohol Use History: None Reported Past Drug Use History: None Reported - Past Family History Mother Family Medical History: Cancer, CVA/TIA Additional Family Medical History / Comment(s): kidney cancer Father Family Medical History: Myocardial Infarction ([place]) Brother(s) Family Medical History: Diabetes Mellitus General Exam Limitations: no limitations General appearance: alert, in no apparent distress Head exam: Present: atraumatic Eye exam: Present: EOMI. Absent: scleral icterus, conjunctival injection ENT exam: Present: mucous membranes dry Neck exam: Present: full ROM. Absent: tenderness, meningismus Respiratory exam: Absent: respiratory distress, accessory muscle use Cardiovascular Exam: Present: tachycardia, normal heart sounds GI/Abdominal exam: Present: distended, tenderness, normal bowel sounds, mass (Masses located bilateral to the incision). Absent: rigid Back exam: Present: normal inspection. Absent: tenderness, CVA tenderness (R), CVA tenderness (L), rash noted Neurological exam: Present: alert, oriented X3 Psychiatric exam: Present: normal affect, normal mood Skin exam: Present: warm, pallor, other (Midline surgical incision dehiscence, circular open wounds at the proximal and distal end of the incision with air and copious brown watery drainage). Absent: cyanosis, diaphoretic Course Vital Signs 07/18/21 07/18/21 07/18/21 05:53 05:59 07:52 Temperature 100.3 F H Pulse Rate 113 H 100 83 Respiratory 18 18 18 Rate Blood Pressure 123/76 107/59 114/59 O2 Sat by Pulse 95 100 94 L Oximetry Medical Decision Making - Medical Decision Making CT shows an interval ventral abdominal hernia repaired with mesh. There is an elongated fluid collection spinning 23 cm cranial caudal 18 cm wide. This extends from the superficial abdominal wall fascia to the umbilicus. There is extensive stranding with surrounding subcutaneous adipose layer. Inflammatory changes vs infective fluid considered. There is no evidence of leukocytosis. Patient does have a lactic acid of 2.4 she was given a liter of IV fluids. Patient does have a fever of 100.3 with surrounding erythema and tenderness. Blood cultures were drawn. Antibiotics were started. Dr. Walters at bedside to evaluate patient. She will be admitted to his service. - Lab Data Result diagrams: 07/18/21 06:16 07/18/21 06:16 Lab Results 07/18/21 07/18/21 07/18/21 Range/Units 06:16 06:16 06:16 WBC 9.4 (3.8-10.6) k/uL RBC 4.16 (3.80-5.40) m/uL Hgb 11.1 L (11.4-16.0) gm/dL Hct 35.7 (34.0-46.0) % MCV 85.8 (80.0-100.0) fL MCH 26.7 (25.0-35.0) pg MCHC 31.1 (31.0-37.0) g/dL RDW 13.1 (11.5-15.5) % Plt Count 433 (150-450) k/uL MPV 9.1 Neutrophils % 74 % Lymphocytes % 16 % Monocytes % 5 % Eosinophils % 2 % Basophils % 0 % Neutrophils # 6.9 (1.3-7.7) k/uL Lymphocytes # 1.5 (1.0-4.8) k/uL Monocytes # 0.5 (0-1.0) k/uL Eosinophils # 0.2 (0-0.7) k/uL Basophils # 0.0 (0-0.2) k/uL Hypochromasia Slight PT (9.0-12.0) sec INR (<1.2) APTT (22.0-30.0) sec Sodium 130 L (137-145) mmol/L Potassium 3.7 (3.5-5.1) mmol/L Chloride 94 L (98-107) mmol/L Carbon Dioxide 22 (22-30) mmol/L Anion Gap 14 mmol/L BUN 12 (7-17) mg/dL Creatinine 0.72 (0.52-1.04) mg/dL Est GFR (CKD-EPI)AfAm >90 (>60 ml/min/1.73 sqM) Est GFR (CKD-EPI)NonAf 89 (>60 ml/min/1.73 sqM) Glucose 159 H (74-99) mg/dL Lactic Ac Sepsis Rflx Plasma Lactic Acid Xavi 2.4 H* (0.7-2.0) mmol/L Calcium 9.9 (8.4-10.2) mg/dL Total Bilirubin 0.6 (0.2-1.3) mg/dL AST 150 H (14-36) U/L ALT 109 H (4-34) U/L Alkaline Phosphatase 219 H (38-126) U/L Total Protein 6.8 (6.3-8.2) g/dL Albumin 3.2 L (3.5-5.0) g/dL Amylase 44 (30-110) U/L Lipase 113 (23-300) U/L 07/18/21 07/18/21 Range/Units 07:01 07:30 WBC (3.8-10.6) k/uL RBC (3.80-5.40) m/uL Hgb (11.4-16.0) gm/dL Hct (34.0-46.0) % MCV (80.0-100.0) fL MCH (25.0-35.0) pg MCHC (31.0-37.0) g/dL RDW (11.5-15.5) % Plt Count (150-450) k/uL MPV Neutrophils % % Lymphocytes % % Monocytes % % Eosinophils % % Basophils % % Neutrophils # (1.3-7.7) k/uL Lymphocytes # (1.0-4.8) k/uL Monocytes # (0-1.0) k/uL Eosinophils # (0-0.7) k/uL Basophils # (0-0.2) k/uL Hypochromasia PT 12.1 H (9.0-12.0) sec INR 1.1 (<1.2) APTT 23.9 (22.0-30.0) sec Sodium (137-145) mmol/L Potassium (3.5-5.1) mmol/L Chloride (98-107) mmol/L Carbon Dioxide (22-30) mmol/L Anion Gap mmol/L BUN (7-17) mg/dL Creatinine (0.52-1.04) mg/dL Est GFR (CKD-EPI)AfAm (>60 ml/min/1.73 sqM) Est GFR (CKD-EPI)NonAf (>60 ml/min/1.73 sqM) Glucose (74-99) mg/dL Lactic Ac Sepsis Rflx Y Plasma Lactic Acid Xavi (0.7-2.0) mmol/L Calcium (8.4-10.2) mg/dL Total Bilirubin (0.2-1.3) mg/dL AST (14-36) U/L ALT (4-34) U/L Alkaline Phosphatase (38-126) U/L Total Protein (6.3-8.2) g/dL Albumin (3.5-5.0) g/dL Amylase (30-110) U/L Lipase (23-300) U/L Disposition Clinical Impression: Cellulitis, Abdominal fistula Disposition: ADMITTED IP TO THIS HOSP Referrals: [facility] [Primary Care Provider] - 1-2 days Decision Date: 07/18/21 Decision Time: 09:17
[2021-07-18 06:40] LABS: ALT 109 U/L (4-34); AST 150 U/L (14-36); African American GFR (CKD) >90 (>60 ml/min/1.73 sqM); Albumin 3.2 g/dL (3.5-5.0); Alkaline Phosphatase 219 U/L (38-126); Amylase 44 U/L (30-110); Anion Gap 14 mmol/L; Blood Urea Nitrogen 12 mg/dL (7-17); Calcium 9.9 mg/dL (8.4-10.2); Carbon Dioxide 22 mmol/L (22-30); Chloride 94 mmol/L (98-107); Glucose 159 mg/dL (74-99); Lipase 113 U/L (23-300); Non-African American GFR(CKD) 89 (>60 ml/min/1.73 sqM); Potassium 3.7 mmol/L (3.5-5.1); Sodium 130 mmol/L (137-145); Total Bilirubin 0.6 mg/dL (0.2-1.3); Total Protein 6.8 g/dL (6.3-8.2)
[2021-07-18] MEDS ORDERED: methylPREDNISolone SOD SUCCI 125 MG/2 ML VIAL IV STA (06:55)
[2021-07-18] MEDS ORDERED: diphenhydrAMINE 50 MG/ML 1 ML VIAL IVP STA (06:55)
[2021-07-18] MEDS ORDERED: SODIUM CHLORIDE 0.9% 500 ML 500 ML IV ONE (06:55)
[2021-07-18] MEDS ORDERED: FAMOTIDINE 20 MG/2 ML VIAL IV STA (06:56)
[2021-07-18 07:01] LABS: Basophils % (A) 0 %; Eosinophils # (A) 0.2 k/uL (0-0.7); Eosinophils % (A) 2 %; HCT 35.7 % (34.0-46.0); HGB 11.1 gm/dL (11.4-16.0); Hypochromasia Slight; Lymphocytes # (A) 1.5 k/uL (1.0-4.8); Lymphocytes % (A) 16 %; MCH 26.7 pg (25.0-35.0); MCHC 31.1 g/dL (31.0-37.0); MCV 85.8 fL (80.0-100.0); Mean Platelet Volume 9.1; Monocytes # (A) 0.5 k/uL (0-1.0); Monocytes % (A) 5 %; Neutrophils # (A) 6.9 k/uL (1.3-7.7); Neutrophils % (A) 74 %; Platelet Count 433 k/uL (150-450); RBC 4.16 m/uL (3.80-5.40); RDW 13.1 % (11.5-15.5); WBC 9.4 k/uL (3.8-10.6)
[2021-07-18] MEDS ORDERED: metroNIDAZOLE-NS PMX 500 MG in SALINE 1 100ML.BAG IVPB STA (07:02)
[2021-07-18] MEDS ORDERED: LEVOFLOXACIN 750MG-D5W PMX 750 MG in DEXTROSE/WATER 1 150ML.BAG IVPB STA (07:02)
[2021-07-18 07:36] LABS: INR 1.1 (<1.2); Partial Thromboplastin Time 23.9 sec (22.0-30.0); Prothrombin Time 12.1 sec (9.0-12.0)
--- NOTE | 2021-07-18 08:19 | CT ---
EXAMINATION TYPE: CT abdomen pelvis w con DATE OF EXAM: 07/18/2021 COMPARISON: 04/07/2021 HISTORY: 65-year-old female post op wound dehiscence TECHNIQUE: Contiguous axial scanning of the abdomen and pelvis following administration of 100 ml Iso judy 300 IV contrast. Delayed images through the kidneys and coronal/sagittal reconstructions perform ed. CT DLP: 1562 mGycm Automated exposure control for dose reduction was used. FINDINGS: Heart upper limits of normal in size without pericardial effusion. Strandy atelectasis dependent with in the posterior lung bases. Liver, right adrenal gland, spleen, and pancreas within normal limits. Mild prominence to the bile duct with a caliber of 8 mm likely due to postcholecystectomy status. 5.6 cm cyst lateral right kidney. Tiny subcentimeter cortical hypodensity lateral left kidney too sma ll for accurate CT characterization, likely cysts. Mild diffuse thickening of the left adrenal gland without discrete nodularity. Retroaortic left renal vein. Mild scattered prostatic calcifications infrarenal abdominal aorta. No dilated small bowel, free fluid, or free air. No mesenteric or retroperitoneal lymphadenopathy. Normal appendix. Mild stool burden. No pericolonic inflammatory change. Staple line from right resect ion and re-anastomosis at the rectosigmoid junction. Bladder urine distended. Uterus appears small postmenopausal. Both ovaries are visualized. Possible 1 .7 cm cystic structure of the right ovary. Further ultrasound characterization recommended to determi ne subsequent follow-up. Pelvic phleboliths. Otherwise, no abnormal fluid collection in the pelvis or pelvic lymphadenopathy. Interval rectus diastases/ventral abdominal wall hernia repair possibly with abdominal plasty or mesh . This can be correlated with surgical technique. However, there is an elongated fluid collection wit hin the subcutaneous adipose layer spanning 23 cm craniocaudal and up to 18.0 cm wide at its widest a spect. Extends from the superficial abdominal wall fascia to the umbilicus by 4.7 cm. Small foci of a ir present and there is extensive stranding within the surrounding subcutaneous adipose layer. Bones: Degenerative interbody ankylosis of T11-T12 with slight accentuated kyphosis here. Baastrup's disease lumbar spine. Moderate to advanced degenerative disc disease and hypertrophic facet arthropat hy. Grade 1 retrolisthesis L2-L3. IMPRESSION: INTERVAL VENTRAL ABDOMINAL WALL HERNIA/RECTUS DIASTASES REPAIRED EITHER WITH SOME MESH OR ABDOMINOPLA STY. CLINICALLY CORRELATE. THERE IS A LARGE FLUID COLLECTION OVERLYING THE REPAIR WITHIN THE SUBCUTAN EOUS ADIPOSE LAYER SPENDING 23 CM CRANIOCAUDAL AND 4.7 CM THICK. GIVEN THE SURROUNDING INFLAMMATORY C HANGES, INFECTIVE FLUID SHOULD BE CONSIDERED.
[2021-07-18] MEDS ORDERED: VANCOMYCIN IV PER PHARMACY 1 EACH MISC MISCELLANE PRN (08:32)
[2021-07-18] MEDS ORDERED: VANCOMYCIN 1,500 MG in SODIUM CHLORIDE 0.9% 250 ML IVPB STA (08:37)
[2021-07-18] MEDS ORDERED: NALOXONE 0.4 MG/ML 1 ML VIAL IV PRN (09:38)
--- NOTE | 2021-07-18 14:09 | P.GSHP ---
History of Present Illness H&P Date: 07/18/21 CHIEF COMPLAINT: Drainage from abdominal wound HISTORY OF PRESENT ILLNESS: This is a 65-year-old female who had repair of incisional hernia with mesh on 05/14/[address] mullins. Patient presented to the emergency room with complaints of drainage from her abdominal wound. Patient reports that tara were removed from the incision about a month ago. And she had a small opening of the wound at the incision site and she was receiving wound care. Apparently she was sitting on her couch yesterday and she had drainage that went through her abdominal binder. Patient reported that the drainage was pink and puslike in color. She does have erythema around the incision site. Patient did have pain on admission. She currently reports that her pain has improved. She does have a history of diabetes. Patient did have a low-grade temp of 100.3 on admission and is tachycardic heart rate 113. Patient was seen and examined by Dr. mullins PAST MEDICAL HISTORY: See list. PAST SURGICAL HISTORY: See list. MEDICATIONS: See list. ALLERGIES: See list. SOCIAL HISTORY: No illicit drug use. REVIEW OF SYSTEMS: CONSTITUTIONAL: Denies fever or chills. HEENT: Denies blurred vision, vision changes, or eye pain. Denies hemoptysis CARDIOVASCULAR: Denies chest pain or pressure. RESPIRATORY: No shortness of breath. GASTROINTESTINAL: See HPI for pertinent findings HEMATOLOGIC: Denies bleeding disorders. GENITOURINARY: Denies any blood in urine or increased urinary frequency. SKIN: Denies pruitis. Denies rash. PHYSICAL EXAM: VITAL SIGNS: Reviewed GENERAL: Well-developed in no acute distress. HEENT: No sclera icterus. Extraocular movements grossly intact. Moist buccal mucosa. Head is atraumatic, normocephalic. No nasal drainage. ABDOMEN: Soft. Nondistended. Abdominal wound incision site with surrounding erythema. Drainage is purulent with serosanguineous color. NEUROLOGIC: Alert and oriented. Cranial nerves II through XII grossly intact. LABORATORY DATA: WBC is 9.4 Hgb 11.1 platelets 433 INR 1.1 Sodium is 1:30 potassium is 3.7 creatinine 0.72 Lactic acid 2.4 LFTs elevated Lipase 113 IMAGING: Computed tomography scan abdomen and pelvis interval ventral abdominal wall hernia/rectus diastases repaired either with some mesh or abdominal plasty. Clinically correlate. There is a large fluid collection overlying the repair within the subcutaneous adipose layer 23 cmcraniocaudal and 4.7 cm thick. Given surrounding inflammatory changes, infected fluid should be considered. ASSESSMENT: 1. Abdominal wound infection 2. Prior incisional hernia repair with mesh placement in May 2021 PLAN: -Patient scheduled for debridement of abdominal wall wound today with Dr. mullins -Keep patient nothing by mouth -Continue antibiotics -Continue IV fluids -Continue pain medication as needed Physician Bleach Chlorinator note has been reviewed by physician. Signing provider agrees with the documented findings, assessment, and plan of care. Past Medical History Past Medical History: Diabetes Mellitus, Fibromyalgia, GERD/Reflux, Osteoarthritis (OA), Renal Disease, Thyroid Disorder Additional Past Medical History / Comment(s): diverticulosis, degenerative disc disease in her back and neck, migraines, and diverticular disease. Decreased renal function. History of Any Multi-Drug Resistant Organisms: None Reported Past Surgical History: Bowel Resection, Cholecystectomy, Tonsillectomy Additional Past Surgical History / Comment(s): Ganglion cyst removed from left ankle, rectal cysts removed, COLONOSCOPY, EGD, Past Anesthesia/Blood Transfusion Reactions: No Reported Reaction Past Psychological History: ADD/ADHD, Anxiety, Depression Smoking Status: Never smoker Past Alcohol Use History: None Reported Past Drug Use History: None Reported - Past Family History Mother Family Medical History: Cancer, CVA/TIA Additional Family Medical History / Comment(s): kidney cancer Father Family Medical History: Myocardial Infarction ([place]) Brother(s) Family Medical History: Diabetes Mellitus Medications and Allergies Home Medications Medication Instructions Recorded Confirmed Type Levothyroxine Sodium [Synthroid] 125 mcg PO DAILY 03/03/17 07/18/21 History Methylphenidate HCl [Ritalin] 20 mg PO TID 03/03/17 07/18/21 History Multivitamins, Thera [Multivitamin 1 tab PO DAILY 03/03/17 07/18/21 History (formulary)] [place]-3 Fatty Acids [[place]-3] 1,000 mg PO DAILY 03/03/17 07/18/21 History buPROPion HCL [Wellbutrin SR] 150 mg PO DAILY 03/03/17 07/18/21 History traZODone HCL 150 mg PO HS 03/03/17 07/18/21 History Fenofibrate 160 mg PO DAILY 06/11/20 07/18/21 History Topiramate [Trokendi Xr] 100 mg PO DAILY 06/11/20 07/18/21 History Cholecalciferol [Vitamin D3 (125 125 mcg PO DAILY 04/07/21 07/18/21 History Mcg = 5000 Iu)] Cyanocobalamin (Vitamin B-12) 1,000 mcg PO DAILY 04/07/21 07/18/21 History [Vitamin B-12] Pantoprazole Sodium [Protonix] 20 mg PO DAILY 04/07/21 07/18/21 History Propranolol HCl [Inderal] 60 mg PO DAILY 04/07/21 07/18/21 History metFORMIN HCL ER [Glucophage XR] 500 mg PO BID 04/07/21 07/18/21 History Brexpiprazole [Rexulti] 4 mg PO DAILY 06/02/21 07/18/21 History Nystatin 100,000 Unit/gm Powd 1 applic TOPICAL BID PRN 06/02/21 07/18/21 History [Mycostatin Powder] buPROPion SR [Wellbutrin SR] 300 mg PO HS 06/02/21 07/18/21 History Allergies Allergy/AdvReac Type Severity Reaction Status Date / Time Iodinated Contrast Media Allergy Rash/Hives Verified 07/18/21 10:21 [Iodinated Contrast- Oral and IV Dye] sumatriptan [From Imitrex] Allergy THROAT Verified 07/18/21 10:21 SWELLING Penicillins AdvReac YEAST Verified 07/18/21 10:21 INFECTION Surgical - Exam Vital Signs Temp Pulse Resp BP Pulse Ox 100.3 F H 113 H 18 123/76 95 07/18/21 05:53 07/18/21 05:53 07/18/21 05:53 07/18/21 05:53 07/18/21 05:53 Results - Labs 07/18/21 06:16 07/18/21 06:16 Abnormal Lab Results - Last 24 Hours (Table) 07/18/21 07/18/21 07/18/21 Range/Units 06:16 06:16 06:16 Hgb 11.1 L (11.4-16.0) gm/dL PT (9.0-12.0) sec Sodium 130 L (137-145) mmol/L Chloride 94 L (98-107) mmol/L Glucose 159 H (74-99) mg/dL Plasma Lactic Acid Xavi 2.4 H* (0.7-2.0) mmol/L AST 150 H (14-36) U/L ALT 109 H (4-34) U/L Alkaline Phosphatase 219 H (38-126) U/L Albumin 3.2 L (3.5-5.0) g/dL 07/18/21 Range/Units 07:01 Hgb (11.4-16.0) gm/dL PT 12.1 H (9.0-12.0) sec Sodium (137-145) mmol/L Chloride (98-107) mmol/L Glucose (74-99) mg/dL Plasma Lactic Acid Xavi (0.7-2.0) mmol/L AST (14-36) U/L ALT (4-34) U/L Alkaline Phosphatase (38-126) U/L Albumin (3.5-5.0) g/dL Diabetes panel 07/18/21 Range/Units 06:16 Sodium 130 L (137-145) mmol/L Potassium 3.7 (3.5-5.1) mmol/L Chloride 94 L (98-107) mmol/L Carbon Dioxide 22 (22-30) mmol/L BUN 12 (7-17) mg/dL Creatinine 0.72 (0.52-1.04) mg/dL Glucose 159 H (74-99) mg/dL Calcium 9.9 (8.4-10.2) mg/dL AST 150 H (14-36) U/L ALT 109 H (4-34) U/L Alkaline Phosphatase 219 H (38-126) U/L Total Protein 6.8 (6.3-8.2) g/dL Albumin 3.2 L (3.5-5.0) g/dL Calcium panel 07/18/21 Range/Units 06:16 Calcium 9.9 (8.4-10.2) mg/dL Albumin 3.2 L (3.5-5.0) g/dL Pituitary panel 07/18/21 Range/Units 06:16 Sodium 130 L (137-145) mmol/L Potassium 3.7 (3.5-5.1) mmol/L Chloride 94 L (98-107) mmol/L Carbon Dioxide 22 (22-30) mmol/L BUN 12 (7-17) mg/dL Creatinine 0.72 (0.52-1.04) mg/dL Glucose 159 H (74-99) mg/dL Calcium 9.9 (8.4-10.2) mg/dL Adrenal panel 07/18/21 Range/Units 06:16 Sodium 130 L (137-145) mmol/L Potassium 3.7 (3.5-5.1) mmol/L Chloride 94 L (98-107) mmol/L Carbon Dioxide 22 (22-30) mmol/L BUN 12 (7-17) mg/dL Creatinine 0.72 (0.52-1.04) mg/dL Glucose 159 H (74-99) mg/dL Calcium 9.9 (8.4-10.2) mg/dL Total Bilirubin 0.6 (0.2-1.3) mg/dL AST 150 H (14-36) U/L ALT 109 H (4-34) U/L Alkaline Phosphatase 219 H (38-126) U/L Total Protein 6.8 (6.3-8.2) g/dL Albumin 3.2 L (3.5-5.0) g/dL
[2021-07-18 15:03] LABS: Glucose,Whole Blood 126 mg/dL (75-99)
[2021-07-18 15:40] LABS: Appearance,Urine Clear (Clear); Bilirubin,Urine Negative (Negative); Blood,Urine Negative (Negative); Color,Urine Yellow; Glucose,Urine (UA) Negative (Negative); Ketones,Urine Negative (Negative); Leukocyte Esterase,Urine Small (Negative); Mucus,Urine Rare /hpf; Nitrite,Urine Negative (Negative); Protein,Urine Negative (Negative); RBC,Urine 4 /hpf (0-5); Specific Gravity,Urine 1.016 (1.001-1.035); Urobilinogen,Urine <2.0 mg/dL (<2.0); WBC,Urine 1 /hpf (0-5)
[2021-07-18] MEDS: HYDROmorphone 1 MG/ML 1 ML SYRINGE IVP PRN ×2 (16:39→20:07)
[2021-07-18] MEDS: METHYLPHENIDATE HCL 10 MG TAB PO SCH ×2 (20:06→22:33)
[2021-07-18] MEDS: metFORMIN 500 MG TAB PO SCH (20:06)
[2021-07-18] MEDS: VANCOMYCIN 1,500 MG in SODIUM CHLORIDE 0.9% 250 ML IVPB SCH (22:17)
[2021-07-18] MEDS: buPROPion SR 150 MG TABLET.ER PO SCH (22:29)
[2021-07-18] MEDS: traZODone HCL 100 MG TAB PO SCH (23:00)
[2021-07-19] MEDS: HYDROmorphone 1 MG/ML 1 ML SYRINGE IVP PRN ×2 (01:16→16:28)
[2021-07-19 06:56] LABS: Glucose,Whole Blood 89 mg/dL (75-99)
[2021-07-19] MEDS: LEVOTHYROXINE 125 MCG TAB PO SCH (07:47)
[2021-07-19] MEDS: NON FORMULARY DRUG (Brexpiprazole [Rexulti] 4 MG Tablet) PO SCH (07:47)
[2021-07-19] MEDS: CHOLECALCIFEROL 125 MCG (5000 IU) TABLET PO SCH (07:47)
[2021-07-19] MEDS: metFORMIN 500 MG TAB PO SCH ×2 (07:47→21:49)
[2021-07-19] MEDS: MULTIVITAMINS, THERA 1 EACH TAB PO SCH (07:47)
[2021-07-19] MEDS: PANTOPRAZOLE 40 MG TABLET PO SCH (07:47)
[2021-07-19] MEDS: CYANOCOBALAMIN 500 MCG TAB PO SCH (07:47)
[2021-07-19] MEDS: METHYLPHENIDATE HCL 10 MG TAB PO SCH ×3 (07:51→21:49)
[2021-07-19] MEDS: VANCOMYCIN 1,500 MG in SODIUM CHLORIDE 0.9% 250 ML IVPB SCH (07:51)
[2021-07-19] MEDS: PROPRANOLOL 20 MG TAB PO SCH (07:52)
[2021-07-19] MEDS: buPROPion SR 150 MG TABLET.ER PO SCH ×2 (07:52→21:48)
[2021-07-19] MEDS: TOPIRAMATE 25 MG TAB PO SCH ×2 (07:53→21:49)
[2021-07-19] MEDS: FENOFIBRATE 160 MG TAB PO SCH (07:53)
[2021-07-19] MEDS ORDERED: NON FORMULARY DRUG (Omega-3 Fatty Acids [Omega-3] 1,000 MG Capsule) PO SCH (09:00)
[2021-07-19] MEDS ORDERED: IV FLUID CONTINUATION 900 ML IV ONE (09:33)
[2021-07-19] MEDS ORDERED: ONDANSETRON 4 MG/2 ML VIAL IVP ONE ×2 (09:40→10:55)
[2021-07-19 09:45] LABS: African American GFR (CKD) 110.9 (60.0-200.0); Non-African American GFR(CKD) 95.7 (60.0-200.0)
[2021-07-19] MEDS ORDERED: MIDAZOLAM 2 MG/2 ML VIAL ONE (09:53)
[2021-07-19] MEDS ORDERED: WATER FOR INJECTION, STERILE 10 ML VIAL IV ONE (09:53)
[2021-07-19] MEDS ORDERED: LIDOCAINE 2% INJ 20 MG/ML (2 ML VIAL) ONE (09:53)
[2021-07-19] MEDS ORDERED: ePHEDrine 50 MG/ML 1 ML VIAL ONE (09:53)
[2021-07-19] MEDS ORDERED: HEPARIN SODIUM,PORCINE 5,000 UNIT/ML 1 ML VIAL ONE (09:53)
[2021-07-19] MEDS ORDERED: SUCCINYLCHOLINE CHLORIDE 100 MG/5 ML SYR IV ONE (09:53)
[2021-07-19] MEDS ORDERED: PROPOFOL 10 MG/ML 20 ML VIAL IV ONE (09:53)
[2021-07-19] MEDS ORDERED: fentaNYL (PF) 50 MCG/ML 2 ML AMP ONE (09:53)
--- NOTE | 2021-07-19 10:44 | P.OP ---
Date of Procedure: 07/19/21 Preoperative Diagnosis: Wound infection Postoperative Diagnosis: Wound infection Mesh infection Procedure(s) Performed: Removal of infected mesh Anesthesia: YONG Surgeon: Giovany Walters Estimated Blood Loss (ml): 10 Pathology: other (Wound culture,) Condition: stable Disposition: PACU Description of Procedure: The patient's placed the operative table in the supine position. She received general endotracheal anesthesia. Her abdomen was prepped and draped usual fashion. The skin was incised over the midline. There was a cavity in the subcutaneous tissue. The mesh was visualized. The mesh. Because infected. Using a pair of Maria Dolores clamps the mesh was grasped and then removed with traction. The wound cavity was irrigated. There is no bleeding seen. The wound measured approximately 20 x 15 x 10 cm. The wound was packed with 4 Kerlix sponges. Wet-to-dry. Patient top she will was sent to recovery room in stable condition.
[2021-07-19] MEDS ORDERED: HYDROmorphone 0.5 MG/0.5 ML SYRINGE IVP ONE ×2 (10:55→11:01)
[2021-07-19] MEDS ORDERED: LACTATED RINGERS 1,000 ML IV ONE (11:09)
[2021-07-19 11:10] LABS: Glucose,Whole Blood 89 mg/dL (75-99)
[2021-07-19] MEDS: CEFEPIME 2 GM in SODIUM CHLORIDE 0.9% 100 ML IVPB SCH (16:19)
[2021-07-19 16:50] LABS: Glucose,Whole Blood 101 mg/dL (75-99)
[2021-07-19 20:31] LABS: Glucose,Whole Blood 123 mg/dL (75-99)
[2021-07-19] MEDS: traZODone HCL 100 MG TAB PO SCH ×2 (21:49→21:53)
--- NOTE | 2021-07-19 22:39 | P.CONS ---
History of Present Illness - Reason for Consult Consult date: 07/19/21 Mesh infection/wound VAC placement Requesting physician: Giovany Walters - Chief Complaint Abdominal pain and drainage x 1 day - History of Present Illness Patient is a 65-year-old female who is s/p repair of the incisional hernia with mesh on 05/14/2020, patient mention the lower part of the incision healed however the operative port incision never healed and was under care of the home care and wound care nurses and has been treated with silver dressing patient mention has been on antibiotic however did not recall the name of those antibiotics, patient mention few days ago she started having increasing pain to the abdominal wall as well as some redness and the day of presentation to the hospital the patient did have a spontaneous drainage of large amount of pink and pulselike fluid patient called EMS who brought the patient to the ER on arrival to the ER patient did have a low-grade fever 100.3 F patient did have a white count of 9.4 creatinine was normal urine was negative patient did have a CT of abdominal pelvis which did shows internal ventral abdominal wall hernia repaired large fluid collection overlying the repair within the subcutaneous adipose layer concerning for infected fluid patient was taken to the OR this morning and this patient status post removal of the infected mesh and cultures patient was started on vancomycin infectious disease was consulted for further management of antibiotic and wound VAC placement Review of Systems Positive point has been mentioned in the HPI rest of the systems are negative Past Medical History Past Medical History: Diabetes Mellitus, Fibromyalgia, GERD/Reflux, Osteoarthritis (OA), Renal Disease, Thyroid Disorder Additional Past Medical History / Comment(s): diverticulosis, degenerative disc disease in her back and neck, migraines, and diverticular disease. Decreased renal function. History of Any Multi-Drug Resistant Organisms: None Reported Past Surgical History: Bowel Resection, Cholecystectomy, Tonsillectomy Additional Past Surgical History / Comment(s): Ganglion cyst removed from left ankle, rectal cysts removed, COLONOSCOPY, EGD, Past Anesthesia/Blood Transfusion Reactions: No Reported Reaction Past Psychological History: ADD/ADHD, Anxiety, Depression Smoking Status: Never smoker Past Alcohol Use History: None Reported Past Drug Use History: None Reported - Past Family History Mother Family Medical History: Cancer, CVA/TIA Additional Family Medical History / Comment(s): kidney cancer Father Family Medical History: Myocardial Infarction ([place]) Brother(s) Family Medical History: Diabetes Mellitus Medications and Allergies Home Medications Medication Instructions Recorded Confirmed Type Levothyroxine Sodium [Synthroid] 125 mcg PO DAILY 03/03/17 07/18/21 History Methylphenidate HCl [Ritalin] 20 mg PO TID 03/03/17 07/18/21 History Multivitamins, Thera [Multivitamin 1 tab PO DAILY 03/03/17 07/18/21 History (formulary)] [place]-3 Fatty Acids [[place]-3] 1,000 mg PO DAILY 03/03/17 07/18/21 History buPROPion HCL [Wellbutrin SR] 150 mg PO DAILY 03/03/17 07/18/21 History traZODone HCL 150 mg PO HS 03/03/17 07/18/21 History Fenofibrate 160 mg PO DAILY 06/11/20 07/18/21 History Topiramate [Trokendi Xr] 100 mg PO DAILY 06/11/20 07/18/21 History Cholecalciferol [Vitamin D3 (125 125 mcg PO DAILY 04/07/21 07/18/21 History Mcg = 5000 Iu)] Cyanocobalamin (Vitamin B-12) 1,000 mcg PO DAILY 04/07/21 07/18/21 History [Vitamin B-12] Pantoprazole Sodium [Protonix] 20 mg PO DAILY 04/07/21 07/18/21 History Propranolol HCl [Inderal] 60 mg PO DAILY 04/07/21 07/18/21 History metFORMIN HCL ER [Glucophage XR] 500 mg PO BID 04/07/21 07/18/21 History Brexpiprazole [Rexulti] 4 mg PO DAILY 06/02/21 07/18/21 History Nystatin 100,000 Unit/gm Powd 1 applic TOPICAL BID PRN 06/02/21 07/18/21 History [Mycostatin Powder] buPROPion SR [Wellbutrin SR] 300 mg PO HS 06/02/21 07/18/21 History Allergies Allergy/AdvReac Type Severity Reaction Status Date / Time Iodinated Contrast Media Allergy Rash/Hives Verified 07/18/21 10:21 [Iodinated Contrast- Oral and IV Dye] sumatriptan [From Imitrex] Allergy THROAT Verified 07/18/21 10:21 SWELLING Penicillins AdvReac YEAST Verified 07/18/21 10:21 INFECTION Physical Exam Vitals: Vital Signs Temp Pulse Pulse Resp BP BP Pulse Ox 07/19/21 11:17 66 16 107/59 97 07/19/21 11:04 62 16 114/58 99 07/19/21 10:49 97.3 F L 70 16 103/69 92 L 07/19/21 09:29 97.6 F 62 18 134/61 98 07/19/21 07:44 98.1 F 68 104/67 96 07/19/21 00:47 97.5 F L 67 16 114/72 99 07/18/21 20:14 65 120/81 07/18/21 20:13 97.3 F L 14 96 07/18/21 19:19 60 18 100/63 94 L 07/18/21 14:49 65 18 97/68 96 Intake and Output 07/18/21 07/19/21 07/19/21 22:59 06:59 14:59 Intake Total 1000 Output Total 10 Balance 990 Intake: IV 1000 Output: Estimated Blood Loss 10 Other: # Voids 2 1 # Bowel Movements 1 Weight 95.254 kg GENERAL DESCRIPTION: Elderly female lying in bed, no distress. No tachypnea or accessory muscle of respiration use. HEENT: Shows Pallor , no scleral icterus. Oral mucous membrane is dry. No pharyngeal erythema or thrush NECK: Trachea central, no thyromegaly. LUNGS: Unlabored breathing. Clear to auscultation anteriorly. No wheeze or crackle. HEART: S1, S2, regular rate and rhythm. No loud murmur ABDOMEN: Soft, abdominal wound is currently dressed no drainage on the dressing EXTREMITIES: No edema of feet. SKIN: No rash, no masses palpable. NEUROLOGICAL: The patient is awake, alert, oriented x3, mood and affect normal. Results CBC & Chem 7: 07/18/21 06:16 07/19/21 05:50 Labs: Abnormal Lab Results - Last 24 Hours (Table) 07/18/21 07/18/21 Range/Units 13:53 15:02 POC Glucose (mg/dL) 126 H (75-99) mg/dL Ur Leukocyte Esterase Small H (Negative) Urine Mucus Rare H (None) /hpf Microbiology - Last 24 Hours (Table) 07/18/21 06:16 Blood Culture - Preliminary Blood No Growth after 24 hours 07/18/21 06:00 Blood Culture - Preliminary Blood No Growth after 24 hours Assessment and Plan (1) Cellulitis Current Visit: Yes Status: Acute Code(s): L03.90 - CELLULITIS, UNSPECIFIED SNOMED Code(s): 583494463 Plan: 1patient was in the hospital with a abdominal pain and swelling redness and drainage in this patient with abnormal CT concerning for possible infected seroma status post laparotomy removal of the infected mesh and deep culture, will need to cover for the gram-positive skin mechelle as well as gram-negative pathogen. 2penicillin allergy that would limit the number of antibiotics safe to use. 3vancomycin pharmacy to dose target trough of 15 while watching kidney function and vancomycin trough closely. 4we will add cefepime to cover for the gram-negative while waiting for the culture to finalize. 5as the patient just came back from the OR hence dressing was not removed, will reevaluate abdominal wound tomorrow after dressing is changed and assess for the wound VAC placement We will follow on clinical condition and cultures to further adjust medication if needed Thank you for this consultation will follow this patient along with you
[2021-07-20] MEDS: VANCOMYCIN 1,500 MG in SODIUM CHLORIDE 0.9% 250 ML IVPB SCH ×3 (03:24→21:52)
[2021-07-20] MEDS: CEFEPIME 2 GM in SODIUM CHLORIDE 0.9% 100 ML IVPB SCH ×3 (03:24→17:06)
[2021-07-20] MEDS: HYDROcodone/APAP 5-325MG 1 EACH TAB PO PRN ×2 (03:28→17:06)
[2021-07-20] MEDS: LEVOTHYROXINE 125 MCG TAB PO SCH (05:32)
[2021-07-20 06:51] LABS: Glucose,Whole Blood 113 mg/dL (75-99)
[2021-07-20] MEDS: NON FORMULARY DRUG (Brexpiprazole [Rexulti] 4 MG Tablet) PO SCH (06:59)
[2021-07-20 07:17] LABS: African American GFR (CKD) >90 (>60 ml/min/1.73 sqM); Non-African American GFR(CKD) 86 (>60 ml/min/1.73 sqM)
[2021-07-20] MEDS ORDERED: VANCOMYCIN TROUGH DUE 1 EACH MISC MISCELLANE ONE (08:00)
[2021-07-20] MEDS: CYANOCOBALAMIN 500 MCG TAB PO SCH (09:22)
[2021-07-20] MEDS: MULTIVITAMINS, THERA 1 EACH TAB PO SCH (09:22)
[2021-07-20] MEDS: PROPRANOLOL 20 MG TAB PO SCH (09:22)
[2021-07-20] MEDS: TOPIRAMATE 25 MG TAB PO SCH ×2 (09:23→21:45)
[2021-07-20] MEDS: CHOLECALCIFEROL 125 MCG (5000 IU) TABLET PO SCH (09:23)
[2021-07-20] MEDS: METHYLPHENIDATE HCL 10 MG TAB PO SCH ×3 (09:23→21:44)
[2021-07-20] MEDS: buPROPion SR 150 MG TABLET.ER PO SCH ×2 (09:24→21:46)
[2021-07-20] MEDS: FENOFIBRATE 160 MG TAB PO SCH (09:24)
[2021-07-20] MEDS: metFORMIN 500 MG TAB PO SCH ×2 (09:24→21:44)
[2021-07-20] MEDS: PANTOPRAZOLE 40 MG TABLET PO SCH (09:24)
[2021-07-20] MEDS: HYDROmorphone 1 MG/ML 1 ML SYRINGE IVP PRN ×2 (11:08→21:54)
[2021-07-20 11:10] LABS: Glucose,Whole Blood 115 mg/dL (75-99)
--- NOTE | 2021-07-20 12:03 | P.PN ---
Progress Note - Text Progress Note Date: 07/20/21 A shunt is status post abdominal wall debridement and removal of infected mesh. She is doing well. Her pain is controlled. On exam vital signs are stable. Abdomen soft. Wound is clean. A pair patient will have the wound VAC placed later today hopefully. We're we'll plan for discharge home tomorrow.
--- NOTE | 2021-07-20 14:15 | P.CONS ---
History of Present Illness - Reason for Consult Consult date: 07/20/21 Medical management - Chief Complaint Abdominal wound infection - History of Present Illness Patient is a 65-year-old female with a known history of diabetes type 2, hypothyroidism, GERD, osteoarthritis, ADD/ADHD, anxiety/depression and recent history of incisional hernia repair with mesh on 05/14/2021 presents to ER with complaints of drainage from the abdominal wound and wound issues. Patient states that she had her tara removed about a month ago and while getting up from chair he started having "the wound. On the day of admission patient noticed some serosanguineous drainage from the wound and noted pink secretions on the abdominal binder. Came to ER for evaluation. On admission patient was tachycardic and temperature 100.3 and pulse ox 97% improvement. CT of the abdomen pelvis showed interval ventral abdominal wall hernia/practice diastasis repair with mesh. There is large fluid collection overlying the repair within the subcutaneous adipose layer spreading 23 cm craniocaudal and 4.7 cm thick. Patient is currently on vancomycin and cefepime. ID is on board. Laboratory data showed WBC 9.4 hemoglobin 11.1 and platelets 433, sodium 1:30 potassium 3.7 chloride 94 bicarb is 22 BUN 12 and creatinine 0.72 and blood sugar is 159, lactic acid was 2.4 on admission down to 0.9 Urinalysis negative for infection AST 150 ALT 109 alk phos 219 and albumin 3.2 Review of Systems Constitutional: Patient denies any fever or chills . No generalized weakness or weight loss. Abdomen: Patient denied nausea vomiting and diarrhea and abdominal pain. Blood- tinged secretions from the abdominal wound. Cardiovascular: Patient denies any chest pain or short of breath no palpitations. Respiratory: patient denied any cough is from production. No shortness of breath Neurologic: Patient denied any numbness or tingling headache. Musculoskeletal: Patient denies any complaints of joint swelling or deformity. Skin: Negative Psychiatric: Negative Endocrine: No heat or cold intolerance. No recent weight gain. Genitourinary: No dysuria or hematuria. All other 14 point ROS negative except the above Past Medical History Past Medical History: Diabetes Mellitus, Fibromyalgia, GERD/Reflux, Osteoarthritis (OA), Renal Disease, Thyroid Disorder Additional Past Medical History / Comment(s): diverticulosis, degenerative disc disease in her back and neck, migraines, and diverticular disease. Decreased renal function. History of Any Multi-Drug Resistant Organisms: None Reported Past Surgical History: Bowel Resection, Cholecystectomy, Tonsillectomy Additional Past Surgical History / Comment(s): Ganglion cyst removed from left ankle, rectal cysts removed, COLONOSCOPY, EGD, Past Anesthesia/Blood Transfusion Reactions: No Reported Reaction Past Psychological History: ADD/ADHD, Anxiety, Depression Smoking Status: Never smoker Past Alcohol Use History: None Reported Past Drug Use History: None Reported - Past Family History Mother Family Medical History: Cancer, CVA/TIA Additional Family Medical History / Comment(s): kidney cancer Father Family Medical History: Myocardial Infarction ([place]) Brother(s) Family Medical History: Diabetes Mellitus Medications and Allergies Home Medications Medication Instructions Recorded Confirmed Type Levothyroxine Sodium [Synthroid] 125 mcg PO DAILY 03/03/17 07/18/21 History Methylphenidate HCl [Ritalin] 20 mg PO TID 03/03/17 07/18/21 History Multivitamins, Thera [Multivitamin 1 tab PO DAILY 03/03/17 07/18/21 History (formulary)] [place]-3 Fatty Acids [[place]-3] 1,000 mg PO DAILY 03/03/17 07/18/21 History buPROPion HCL [Wellbutrin SR] 150 mg PO DAILY 03/03/17 07/18/21 History traZODone HCL 150 mg PO HS 03/03/17 07/18/21 History Fenofibrate 160 mg PO DAILY 06/11/20 07/18/21 History Topiramate [Trokendi Xr] 100 mg PO DAILY 06/11/20 07/18/21 History Cholecalciferol [Vitamin D3 (125 125 mcg PO DAILY 04/07/21 07/18/21 History Mcg = 5000 Iu)] Cyanocobalamin (Vitamin B-12) 1,000 mcg PO DAILY 04/07/21 07/18/21 History [Vitamin B-12] Pantoprazole Sodium [Protonix] 20 mg PO DAILY 04/07/21 07/18/21 History Propranolol HCl [Inderal] 60 mg PO DAILY 04/07/21 07/18/21 History metFORMIN HCL ER [Glucophage XR] 500 mg PO BID 04/07/21 07/18/21 History Brexpiprazole [Rexulti] 4 mg PO DAILY 06/02/21 07/18/21 History Nystatin 100,000 Unit/gm Powd 1 applic TOPICAL BID PRN 06/02/21 07/18/21 History [Mycostatin Powder] buPROPion SR [Wellbutrin SR] 300 mg PO HS 06/02/21 07/18/21 History Allergies Allergy/AdvReac Type Severity Reaction Status Date / Time Iodinated Contrast Media Allergy Rash/Hives Verified 07/18/21 10:21 [Iodinated Contrast- Oral and IV Dye] sumatriptan [From Imitrex] Allergy THROAT Verified 07/18/21 10:21 SWELLING Penicillins AdvReac YEAST Verified 07/18/21 10:21 INFECTION Physical Exam Vitals: Vital Signs Temp Pulse Resp BP Pulse Ox 07/20/21 08:00 97.3 F L 84 102/68 97 07/20/21 02:00 98.2 F 100 16 135/81 98 07/19/21 21:49 16 07/19/21 19:54 97.9 F 70 20 126/83 96 07/19/21 13:45 66 120/79 95 07/19/21 13:30 65 114/66 95 07/19/21 13:15 72 119/61 93 L 07/19/21 13:00 65 116/69 98 07/19/21 12:45 65 118/76 96 07/19/21 12:30 61 112/66 96 07/19/21 12:15 71 106/65 94 L 07/19/21 12:00 61 102/66 91 L 07/19/21 11:45 97.5 F L 61 93/56 90 L 07/19/21 11:17 66 16 107/59 97 07/19/21 11:04 62 16 114/58 99 07/19/21 10:49 97.3 F L 70 16 103/69 92 L Intake and Output 07/19/21 07/20/21 07/20/21 22:59 06:59 14:59 Other: Voiding Method Toilet # Voids 1 1 1 PHYSICAL EXAMINATION: Patient is lying in the bed comfortably, no acute distress, awake alert and oriented.. HEENT: Normocephalic. Neck is supple. Pupils reactive. Nostrils clear. Oral cavity is moist. Neck reveals no JVD, carotid bruits, or thyromegaly. CHEST EXAMINATION: Trachea is central. Symmetrical expansion. Lung varner clear to auscultation and percussion. CARDIAC: Normal S1, S2 with no gallops. No murmurs ABDOMEN: Soft. Bowel sounds present. Abdominal wound binder in place.. No organomegaly. No abdominal bruits. Extremities: reveal no edema. No clubbing or cyanosis Neurologically awake, alert, oriented x3 with well-coordinated movements. No focal deficits noted Skin: No rash or skin lesions. Psychiatric: Coperative. Nonsuicidal Musculoskeletal: No joint swelling or deformity. Normal range of motion. Results CBC & Chem 7: 07/18/21 06:16 07/20/21 04:52 Labs: Abnormal Lab Results - Last 24 Hours (Table) 07/19/21 07/19/21 07/20/21 Range/Units 16:48 20:28 06:48 POC Glucose (mg/dL) 101 H 123 H 113 H (75-99) mg/dL Microbiology - Last 24 Hours (Table) 07/18/21 06:16 Blood Culture - Preliminary Blood No Growth after 48 hours 07/18/21 06:00 Blood Culture - Preliminary Blood No Growth after 48 hours 07/19/21 10:42 Gram Stain - Preliminary Abdomen Wound Culture - Preliminary 07/19/21 10:42 Anaerobic Culture - Preliminary Abdomen Assessment and Plan Assessment: Abdominal incisional wound infection with surrounding cellulitis and fluid collection with possible infected seroma. Status post removal of infected mesh. Lactic acidosis Status post incisional hernia repair with mesh placement on 05/14/2021. Diabetes type 2 [id number] Hypothyroidism Fibromyalgia Osteoarthritis ADD/ADHD, anxiety/depression DVT prophylaxis Plan: Patient is being continued on antibiotics cefepime and vancomycin. Wound cultures showed presumptive staph aureus. ID is on board. Continue the pain management and follow up CBC and BMP. Patient is status post removal of infected mesh. Follow final culture reports. Further recommendations based on the clinical course. Continue the wound care. Thank you for your consult. Time with Patient: Greater than 30
[2021-07-20 16:30] LABS: Glucose,Whole Blood 108 mg/dL (75-99)
[2021-07-20 21:13] LABS: Glucose,Whole Blood 99 mg/dL (75-99)
[2021-07-20] MEDS: traZODone HCL 100 MG TAB PO SCH (21:44)
[2021-07-20] MEDS ORDERED: DOCUSATE 100 MG CAP PO SCH (21:45)
[2021-07-20] MEDS ORDERED: bisacodyL 10 MG SUPP RECTAL STA (22:11)
[2021-07-20] MEDS ORDERED: bisacodyL 10 MG SUPP RECTAL PRN (23:04)
[2021-07-21] MEDS: CEFEPIME 2 GM in SODIUM CHLORIDE 0.9% 100 ML IVPB SCH ×3 (02:44→17:02)
[2021-07-21 05:46] LABS: African American GFR (CKD) >90 (>60 ml/min/1.73 sqM); Anion Gap 9 mmol/L; Blood Urea Nitrogen 7 mg/dL (7-17); Calcium 9.2 mg/dL (8.4-10.2); Carbon Dioxide 19 mmol/L (22-30); Chloride 108 mmol/L (98-107); Glucose 87 mg/dL (74-99); Non-African American GFR(CKD) >90 (>60 ml/min/1.73 sqM); Potassium 3.5 mmol/L (3.5-5.1); Sodium 136 mmol/L (137-145)
[2021-07-21] MEDS: HYDROcodone/APAP 5-325MG 1 EACH TAB PO PRN ×3 (06:01→20:34)
[2021-07-21] MEDS: LEVOTHYROXINE 125 MCG TAB PO SCH (06:01)
[2021-07-21 07:08] LABS: Glucose,Whole Blood 110 mg/dL (75-99)
[2021-07-21] MEDS: MULTIVITAMINS, THERA 1 EACH TAB PO SCH (07:42)
[2021-07-21] MEDS: buPROPion SR 150 MG TABLET.ER PO SCH ×2 (07:43→22:32)
[2021-07-21] MEDS: PANTOPRAZOLE 40 MG TABLET PO SCH (07:43)
[2021-07-21] MEDS: FENOFIBRATE 160 MG TAB PO SCH (07:43)
[2021-07-21] MEDS: METHYLPHENIDATE HCL 10 MG TAB PO SCH ×3 (07:43→22:30)
[2021-07-21] MEDS: metFORMIN 500 MG TAB PO SCH ×2 (07:43→22:30)
[2021-07-21] MEDS: CHOLECALCIFEROL 125 MCG (5000 IU) TABLET PO SCH (07:43)
[2021-07-21] MEDS: CYANOCOBALAMIN 500 MCG TAB PO SCH (07:43)
[2021-07-21] MEDS: PROPRANOLOL 20 MG TAB PO SCH (07:44)
[2021-07-21] MEDS: TOPIRAMATE 25 MG TAB PO SCH ×2 (07:44→22:31)
[2021-07-21] MEDS: NON FORMULARY DRUG (Brexpiprazole [Rexulti] 4 MG Tablet) PO SCH (07:45)
[2021-07-21] MEDS: HYDROmorphone 1 MG/ML 1 ML SYRINGE IVP PRN ×2 (07:49→17:04)
[2021-07-21 10:57] LABS: HCT 31.1 % (37.2-46.3); HGB 9.5 g/dL (12.0-15.0); MCH 26.1 pg (27.0-32.0); MCHC 30.5 g/dL (32.0-37.0); MCV 85.4 fL (80.0-97.0); Mean Platelet Volume 10.4 fL (9.5-12.2); NRBC Per 100 WBC 0 /100 WBCS (0.0-0.0); Platelet Count 586 X 10*3/uL (140-440); RBC 3.64 X 10*6/uL (4.10-5.20); RDW 14.1 % (11.5-14.5); WBC 11.09 X 10*3/uL (4.50-10.00)
[2021-07-21] MEDS: VANCOMYCIN 1,500 MG in SODIUM CHLORIDE 0.9% 250 ML IVPB SCH (11:01)
[2021-07-21 11:09] LABS: Basophils # (M) 0.11 X 10*3/uL (0.00-0.10); Eosinophils # (M) 0.11 X 10*3/uL (0.04-0.35); Lymphocytes # (M) 1.22 X 10*3/uL (0.90-5.00); Metamyelocytes % 1 % (0-0); Monocytes # (M) 1.11 X 10*3/uL (0.20-1.00); Myelocytes % 6 % (0-0); Neutrophils # (M) 7.76 X 10*3/uL (2.00-8.90); Neutrophils % (M) 70 %; RBC Morphology NORMAL
[2021-07-21 11:24] LABS: Glucose,Whole Blood 122 mg/dL (75-99)
--- NOTE | 2021-07-21 14:22 | P.PN ---
Progress Note - Text Progress Note Date: 07/21/21 Patient feels better today. Wound VAC is in place. On exam vital signs are stable. Abdomen soft. Patient's wound apparently grew staph. We're awaiting cultures. We have discussed with discharge home tomorrow.
[2021-07-21 15:59] LABS: Glucose,Whole Blood 94 mg/dL (75-99)
[2021-07-21 21:27] LABS: Glucose,Whole Blood 107 mg/dL (75-99)
[2021-07-21] MEDS: traZODone HCL 100 MG TAB PO SCH ×2 (22:31→22:33)
--- NOTE | 2021-07-21 22:57 | P.PN ---
Subjective Progress Note Date: 07/20/21 Principal diagnosis: Infected abdominal mesh Patient is a 65-year-old female who was recently did have a incidental hernia repair With the mesh subsequently presented to hospital abdominal wound dehiscence and drainage has been diagnosed with abdominal wall abscess and concerning for mesh infection which was surgically removed. On today's evaluation that is 07/20/2021, the patient denies having any fever or any chills patient abdominal pain is currently controlled, denies having any chest pain or shortness of breath or cough no nausea no vomiting and no diarrhea Objective - Vital Signs Vital signs: Vital Signs Temp 97.3 F L 07/20/21 08:00 Pulse 84 07/20/21 08:00 Resp 16 07/20/21 02:00 BP 102/68 07/20/21 08:00 Pulse Ox 97 07/20/21 08:00 FiO2 Intake & Output 07/19/21 07/20/21 07/20/21 18:59 06:59 18:59 Intake Total 1000 Output Total 10 Balance 990 Intake: IV 1000 Output: Estimated Blood Loss 10 Other: Voiding Method Toilet # Voids 1 1 1 - Exam GENERAL DESCRIPTION: An elderly male lying in bed in no distress RESPIRATORY SYSTEM: Unlabored breathing , decreased breath sounds at bases HEART: S1 S2 regular rate and rhythm , ABDOMEN: Soft , large midline abdominal wound with no slough tissue EXTREMITIES: No edema feet - Labs CBC & Chem 7: 07/21/21 04:54 07/21/21 04:54 Labs: Abnormal Lab Results - Last 24 Hours (Table) 07/19/21 07/19/21 07/20/21 Range/Units 16:48 20:28 06:48 POC Glucose (mg/dL) 101 H 123 H 113 H (75-99) mg/dL Microbiology - Last 24 Hours (Table) 07/19/21 10:42 Gram Stain - Preliminary Abdomen Wound Culture - Preliminary Presumptive Staph aureus 07/18/21 06:16 Blood Culture - Preliminary Blood No Growth after 48 hours 07/18/21 06:00 Blood Culture - Preliminary Blood No Growth after 48 hours 07/19/21 10:42 Anaerobic Culture - Preliminary Abdomen Assessment and Plan (1) Cellulitis Current Visit: Yes Status: Acute Code(s): L03.90 - CELLULITIS, UNSPECIFIED SNOMED Code(s): 217364825 Plan: 1patient was in the hospital with a abdominal pain and swelling redness and drainage in this patient with abnormal CT concerning for possible infected seroma status post laparotomy removal of the infected mesh and deep culture, will need to cover for the gram-positive skin mechelle as well as gram-negative pathogen. 2penicillin allergy that would limit the number of antibiotics safe to use. 3patient to continue with cefepime and vancomycin pharmacy to dose target trough of 15 while watching kidney function and vancomycin trough closely while waiting for the cultures to finalize. 4 local wound care with a wound VAC continuous pressure 1 25 mmHg change Wednesday and Wednesday Time with Patient: Less than 30
--- NOTE | 2021-07-21 22:58 | P.PN ---
Subjective Progress Note Date: 07/21/21 Principal diagnosis: Infected abdominal mesh Patient is a 65-year-old female who was recently did have a incidental hernia repair With the mesh subsequently presented to hospital abdominal wound dehiscence and drainage has been diagnosed with abdominal wall abscess and concerning for mesh infection which was surgically removed. On today's evaluation that is 07/21/2021, the patient remains to be afebrile, patient abdominal pain is currently controlled, the patient denies having any chest pain or shortness of breath or cough no nausea no vomiting and no diarrhea Objective - Vital Signs Vital signs: Vital Signs Temp 97.9 F 07/21/21 07:21 Pulse 78 07/21/21 07:51 Resp 22 07/21/21 07:51 BP 108/71 07/21/21 07:21 Pulse Ox 97 07/21/21 07:21 FiO2 Intake & Output 07/20/21 07/21/21 07/21/21 18:59 06:59 18:59 Intake Total 350 Balance 350 Intake: Intake, IV Titration 350 Amount Cefepime 2 gm In Sodium 100 Chloride 0.9% 100 ml @ 25 mls/hr IVPB Q8H [facility] Rx#: [id number] Vancomycin 1,500 mg In 250 Sodium Chloride 0.9% 250 ml @ 125 mls/hr IVPB Q12H [facility] Rx#:[id number] Other: Voiding Method Toilet Toilet # Voids 2 1 - Exam GENERAL DESCRIPTION: An elderly male lying in bed in no distress RESPIRATORY SYSTEM: Unlabored breathing , decreased breath sounds at bases HEART: S1 S2 regular rate and rhythm , ABDOMEN: Soft , abdominal wound is covered with a wound VAC EXTREMITIES: No edema feet - Labs CBC & Chem 7: 07/21/21 04:54 07/21/21 04:54 Labs: Abnormal Lab Results - Last 24 Hours (Table) 07/20/21 07/21/21 07/21/21 Range/Units 16:28 04:54 04:54 WBC 11.09 H (4.50-10.00) X 10*3/uL RBC 3.64 L (4.10-5.20) X 10*6/uL Hgb 9.5 L (12.0-15.0) g/dL Hct 31.1 L (37.2-46.3) % MCH 26.1 L (27.0-32.0) pg MCHC 30.5 L (32.0-37.0) g/dL Plt Count 586 H (140-440) X 10*3/uL Plt Count Comment INCREASED A Metamyelocytes % 1 H (0-0) % Myelocytes % 6 H (0-0) % Monocytes # (Manual) 1.11 H (0.20-1.00) X 10*3/uL Basophils # (Manual) 0.11 H (0.00-0.10) X 10*3/uL Sodium 136 L (137-145) mmol/L Chloride 108 H (98-107) mmol/L Carbon Dioxide 19 L (22-30) mmol/L POC Glucose (mg/dL) 108 H (75-99) mg/dL 07/21/21 07/21/21 Range/Units 07:07 11:22 WBC (4.50-10.00) X 10*3/uL RBC (4.10-5.20) X 10*6/uL Hgb (12.0-15.0) g/dL Hct (37.2-46.3) % MCH (27.0-32.0) pg MCHC (32.0-37.0) g/dL Plt Count (140-440) X 10*3/uL Plt Count Comment Metamyelocytes % (0-0) % Myelocytes % (0-0) % Monocytes # (Manual) (0.20-1.00) X 10*3/uL Basophils # (Manual) (0.00-0.10) X 10*3/uL Sodium (137-145) mmol/L Chloride (98-107) mmol/L Carbon Dioxide (22-30) mmol/L POC Glucose (mg/dL) 110 H 122 H (75-99) mg/dL Microbiology - Last 24 Hours (Table) 07/18/21 06:16 Blood Culture - Preliminary Blood No Growth after 72 hours 07/18/21 06:00 Blood Culture - Preliminary Blood No Growth after 72 hours 07/19/21 10:42 Gram Stain - Preliminary Abdomen Wound Culture - Preliminary Presumptive Staph aureus Assessment and Plan (1) Cellulitis Current Visit: Yes Status: Acute Code(s): L03.90 - CELLULITIS, UNSPECIFIED SNOMED Code(s): 629613816 Plan: 1patient was in the hospital with a abdominal pain and swelling redness and drainage in this patient with abnormal CT concerning for possible infected seroma status post laparotomy removal of the infected mesh and deep culture, will need to cover for the gram-positive skin mechelle as well as gram-negative pathogen. 2penicillin allergy that would limit the number of antibiotics safe to use. 3patient local wound care with a wound VAC continuous pressure 1 25 mmHg change Wednesday and Wednesday 4-patient local culture had been finalized with MSSA. Discontinue vancomycin and cefepime start the patient on cefazolin 2 g every 8 hours 5-patient will need a PICC line and short course of IV antibiotics on discharge, discussed with the surgeon Time with Patient: Less than 30
[2021-07-22] MEDS: traZODone HCL 100 MG TAB PO SCH (00:31)
[2021-07-22] MEDS: LEVOTHYROXINE 125 MCG TAB PO SCH (05:45)
--- NOTE | 2021-07-22 05:56 | P.PN ---
Subjective Progress Note Date: 07/21/21 - Reason for Consult Consult date: 07/20/21 Medical management - Chief Complaint Abdominal wound infection - History of Present Illness Patient is a 65-year-old female with a known history of diabetes type 2, hypo thyroidism, GERD, osteoarthritis, ADD/ADHD, anxiety/depression and recent history of incisional hernia repair with mesh on 05/14/2021 presents to ER with complaints of drainage from the abdominal wound and wound issues. Patient states that she had her tara removed about a month ago and while getting up from chair he started having "the wound. On the day of admission patient noticed some serosanguineous drainage from the wound and noted pink secretions on the abdominal binder. Came to ER for evaluation. On admission patient was tachycardic and temperature 100.3 and pulse ox 97% improvement. CT of the abdomen pelvis showed interval ventral abdominal wall hernia/practice diastasis repair with mesh. There is large fluid collection overlying the repair within the subcutaneous adipose layer spreading 23 cm craniocaudal and 4.7 cm thick. Patient is currently on vancomycin and cefepime. ID is on board. Laboratory data showed WBC 9.4 hemoglobin 11.1 and platelets 433, sodium 1:30 potassium 3.7 chloride 94 bicarb is 22 BUN 12 and creatinine 0.72 and blood sugar is 159, lactic acid was 2.4 on admission down to 0.9 Urinalysis negative for infection AST 150 ALT 109 alk phos 219 and albumin 3.2 07/21/2021 She is seen in follow-up this morning continues on IV antibiotics and also cont inues with wound VAC and local wound care. Patient admitted under surgical services for abdominal wall abscess. Cultures showing MSSA. Patient continues with overall weakness and will have physical therapy evaluate the patient as patient reportedly lives alone as well. Patient denying any chest pain or shortness of breath. Patient is afebrile. Patient denies any nausea or vomiting and is tolerating diet. Patient will need a PICC line and IV abx on discharge. Review of systems: Constitutional: No reports of fatigue, fever, or chills Cardiovascular: No reports of chest pain or palpitations Respiratory: No reports of shortness of breath or cough GI: No reports of nausea, vomiting, or diarrhea : No reports of dysuria or retention Neurovascular: reports of weakness All medications have been reviewed Active Medications Hydrocodone Bitart/Acetaminophen (Hydrocodone/Apap 5-325mg 1 Each Tab) 1 each PO Q6HR PRN PRN Reason: Pain Last Admin: 07/21/21 12:04 Dose: 1 each Bisacodyl (Bisacodyl 10 Mg Supp) 10 mg RECTAL ONCE PRN PRN Reason: Constipation Bupropion HCl (Bupropion Sr 150 Mg Tablet.Er) 150 mg PO DAILY [facility] Last Admin: 07/21/21 07:43 Dose: 150 mg Bupropion HCl (Bupropion Sr 150 Mg Tablet.Er) 300 mg PO HS [facility] Last Admin: 07/20/21 21:46 Dose: 300 mg Cholecalciferol (Cholecalciferol 125 Mcg (5000 Iu) Tablet) 125 mcg PO DAILY [facility] Last Admin: 07/21/21 07:43 Dose: 125 mcg Cyanocobalamin (Cyanocobalamin 500 Mcg Tab) 1,000 mcg PO DAILY [facility] Last Admin: 07/21/21 07:43 Dose: 1,000 mcg Fenofibrate (Fenofibrate 160 Mg Tab) 160 mg PO DAILY [facility] Last Admin: 07/21/21 07:43 Dose: 160 mg Hydromorphone HCl (Hydromorphone 1 Mg/Ml 1 Ml Syringe) 1 mg IVP Q3HR PRN PRN Reason: Pain Last Admin: 07/21/21 07:49 Dose: 1 mg Cefepime HCl 2 gm/ Sodium (Chloride) 100 mls @ 25 mls/hr IVPB Q8H [facility]; Protocol Last Admin: 07/21/21 07:52 Dose: 25 mls/hr Vancomycin HCl 1,500 mg/ (Sodium Chloride) 250 mls @ 125 mls/hr IVPB Q12H [facility] Last Admin: 07/21/21 11:01 Dose: 125 mls/hr Levothyroxine Sodium (Levothyroxine 125 Mcg Tab) 125 mcg PO DAILY@0630 [facility] Last Admin: 07/21/21 06:01 Dose: 125 mcg Metformin HCl (Metformin 500 Mg Tab) 500 mg PO BID [facility] Last Admin: 07/21/21 07:43 Dose: 500 mg Methylphenidate HCl (Methylphenidate Hcl 10 Mg Tab) 20 mg PO TID [facility] Last Admin: 07/21/21 07:43 Dose: 20 mg Miscellaneous Information (Vancomycin Trough Due 1 Each Misc) 0 each MISCELLANE DIRECTED ONE Stop: 07/22/21 10:01 Multivitamins (Multivitamins, Thera 1 Each Tab) 1 each PO DAILY [facility] Last Admin: 07/21/21 07:42 Dose: 1 each Naloxone HCl (Naloxone 0.4 Mg/Ml 1 Ml Vial) 0.2 mg IV Q2M PRN PRN Reason: Opioid Reversal Non-Formulary Medication (Brexpiprazole [Rexulti]) 4 mg PO DAILY [facility] Last Admin: 07/21/21 07:45 Dose: Not Given Pantoprazole Sodium (Pantoprazole 40 Mg Tablet) 40 mg PO AC-BRKFST [facility] Last Admin: 07/21/21 07:43 Dose: 40 mg Propranolol HCl (Propranolol 20 Mg Tab) 60 mg PO DAILY [facility] Last Admin: 07/21/21 07:44 Dose: 60 mg Topiramate (Topiramate 25 Mg Tab) 50 mg PO BID [facility] Last Admin: 07/21/21 07:44 Dose: Not Given Trazodone HCl (Trazodone Hcl 100 Mg Tab) 150 mg PO HS [facility] Last Admin: 07/20/21 21:44 Dose: Not Given Physical exam: Patient is sitting up in the bed comfortably, no acute distress, awake alert and oriented.. HEENT: Normocephalic. Neck is supple. Pupils reactive. Nostrils clear. Oral cavity is moist. Neck reveals no JVD, carotid bruits, or thyromegaly. CHEST EXAMINATION: Trachea is central. Symmetrical expansion. Lung varner clear to auscultation and percussion. CARDIAC: Normal S1, S2 with no gallops. No murmurs ABDOMEN: Soft. Bowel sounds present. Abdominal woundvac in place..some minimal redness noted of the top abdominal wound. No organomegaly. No abdominal bruits. Extremities: reveal no edema. No clubbing or cyanosis Neurologically awake, alert, oriented x3 with well-coordinated movements. No focal deficits noted Skin: No rash or skin lesions. Psychiatric: Cooperative. Non-suicidal Musculoskeletal: No joint swelling or deformity. Normal range of motion. Assessment: Abdominal incisional wound infection with surrounding cellulitis and fluid collection with possible infected seroma. Status post removal of infected mesh. Lactic acidosis, improved MSSA on the wound cultures Status post incisional hernia repair with mesh placement on 05/14/2021. Diabetes type 2 [id number] Hypothyroidism Fibromyalgia Osteoarthritis ADD/ADHD, anxiety/depression DVT prophylaxis Full code Plan: Patient was being continued on antibiotics in the form of cefepime and vancomycin. Wound cultures showed MSSA and antibiotics being switched to IV cefazolin. ID is following and plan is for PICC line for outpatient IV antibiotics. Continue the pain management and follow up CBC and BMP in am. Will have PT/OT evaluate the patient. Further recommendations based on the clinical course. Continue with wound care. We will continue to follow along with you during hospitalization. Thank you for this consultation. Possible discharge in 24-48 hours. The impression and plan of care has been dictated by Twyla Beth, Nurse Practitioner as directed. Dr. Donya MD I have performed a history and examination and MDM of this patient, discussed the same with the dictator, and agree with the dictator's assessment and plan as written ,documented as a scribe. Based on total visit time, I have performed more than 50% of the visit. Objective - Vital Signs Vital signs: Vital Signs Temp 97.9 F 07/21/21 07:21 Pulse 78 07/21/21 07:51 Resp 22 07/21/21 07:51 BP 108/71 07/21/21 07:21 Pulse Ox 97 07/21/21 07:21 FiO2 Intake & Output 07/20/21 07/21/21 07/21/21 18:59 06:59 18:59 Intake Total 350 Balance 350 Intake: Intake, IV Titration 350 Amount Cefepime 2 gm In Sodium 100 Chloride 0.9% 100 ml @ 25 mls/hr IVPB Q8H [facility] Rx#: [id number] Vancomycin 1,500 mg In 250 Sodium Chloride 0.9% 250 ml @ 125 mls/hr IVPB Q12H [facility] Rx#:[id number] Other: Voiding Method Toilet Toilet # Voids 2 1 - Labs CBC & Chem 7: 07/21/21 04:54 07/21/21 04:54 Labs: Abnormal Lab Results - Last 24 Hours (Table) 07/20/21 07/20/21 07/21/21 Range/Units 11:09 16:28 04:54 Sodium 136 L (137-145) mmol/L Chloride 108 H (98-107) mmol/L Carbon Dioxide 19 L (22-30) mmol/L POC Glucose (mg/dL) 115 H 108 H (75-99) mg/dL 07/21/21 Range/Units 07:07 Sodium (137-145) mmol/L Chloride (98-107) mmol/L Carbon Dioxide (22-30) mmol/L POC Glucose (mg/dL) 110 H (75-99) mg/dL Microbiology - Last 24 Hours (Table) 07/18/21 06:16 Blood Culture - Preliminary Blood No Growth after 72 hours 07/18/21 06:00 Blood Culture - Preliminary Blood No Growth after 72 hours 07/19/21 10:42 Gram Stain - Preliminary Abdomen Wound Culture - Preliminary Presumptive Staph aureus
[2021-07-22] MEDS: PANTOPRAZOLE 40 MG TABLET PO SCH (08:01)
[2021-07-22] MEDS: PROPRANOLOL 20 MG TAB PO SCH (08:01)
[2021-07-22] MEDS: CYANOCOBALAMIN 500 MCG TAB PO SCH (08:01)
[2021-07-22] MEDS: metFORMIN 500 MG TAB PO SCH (08:02)
[2021-07-22] MEDS: METHYLPHENIDATE HCL 10 MG TAB PO SCH (08:02)
[2021-07-22] MEDS: buPROPion SR 150 MG TABLET.ER PO SCH (08:02)
[2021-07-22] MEDS: FENOFIBRATE 160 MG TAB PO SCH (08:02)
[2021-07-22] MEDS: CHOLECALCIFEROL 125 MCG (5000 IU) TABLET PO SCH (08:02)
[2021-07-22] MEDS: MULTIVITAMINS, THERA 1 EACH TAB PO SCH (08:03)
[2021-07-22] MEDS: NON FORMULARY DRUG (Brexpiprazole [Rexulti] 4 MG Tablet) PO SCH (08:06)
[2021-07-22] MEDS: TOPIRAMATE 25 MG TAB PO SCH (08:07)
[2021-07-22] MEDS: HYDROcodone/APAP 5-325MG 1 EACH TAB PO PRN (09:16)
[2021-07-22] MEDS ORDERED: VANCOMYCIN TROUGH DUE 1 EACH MISC MISCELLANE ONE (10:00)
[2021-07-22] MEDS ORDERED: LIDOCAINE 1% INJ 10MG/ML (20 ML MDV) SQ ONE (11:13)
--- NOTE | 2021-07-22 13:07 | P.DS ---
Providers Date of admission: 07/18/21 11:02 Expected date of discharge: 07/22/21 Attending physician: Giovany Walters Consults: 07/19/21 10:44 Consult Physician Routine Consulting Provider: Rupa Luke Consult Reason/Comments: Medical management Do you want consulting provider notified?: Yes 07/19/21 10:45 Consult Physician Routine Consulting Provider: Kesha Lynch Consult Reason/Comments: Mesh infection, wound VAC placement Do you want consulting provider notified?: Yes Primary care physician: [facility] Course: Is a 65-year-old female who presents emergency room with complaints of abdominal pain redness and drainage. Patient was found have evidence of a ventral hernia mesh infection. Patient underwent removal of mesh and debridement abdominal wall. The wound VAC with subsequent placed. Patient did well during hospital position. She'll be discharged home with wound VAC care and follow-up with Dr. Kelly IV antibiotics and wound care. Plan - Discharge Summary Discharge Rx Participant: Yes New Discharge Prescriptions: New cefTRIAXone [Rocephin] 2,000 mg IVP Q24HR #14 each No Action Klamath-3 Fatty Acids [Klamath-3] 1,000 mg PO DAILY Methylphenidate HCl [Ritalin] 20 mg PO TID traZODone HCL 150 mg PO HS buPROPion HCL [Wellbutrin SR] 150 mg PO DAILY Multivitamins, Thera [Multivitamin (formulary)] 1 tab PO DAILY Levothyroxine Sodium [Synthroid] 125 mcg PO DAILY metFORMIN HCL ER [Glucophage XR] 500 mg PO BID Propranolol HCl [Inderal] 60 mg PO DAILY Fenofibrate 160 mg PO DAILY Topiramate [Trokendi Xr] 100 mg PO DAILY Cyanocobalamin (Vitamin B-12) [Vitamin B-12] 1,000 mcg PO DAILY Cholecalciferol [Vitamin D3 (125 Mcg = 5000 Iu)] 125 mcg PO DAILY Pantoprazole Sodium [Protonix] 20 mg PO DAILY Brexpiprazole [Rexulti] 4 mg PO DAILY buPROPion SR [Wellbutrin SR] 300 mg PO HS Nystatin 100,000 Unit/gm Powd [Mycostatin Powder] 1 applic TOPICAL BID PRN PRN Reason: Rash Discharge Medication List Levothyroxine Sodium [Synthroid] 125 mcg PO DAILY 03/03/17 [History] Methylphenidate HCl [Ritalin] 20 mg PO TID 03/03/17 [History] Multivitamins, Thera [Multivitamin (formulary)] 1 tab PO DAILY 03/03/17 [History] Klamath-3 Fatty Acids [Klamath-3] 1,000 mg PO DAILY 03/03/17 [History] buPROPion HCL [Wellbutrin SR] 150 mg PO DAILY 03/03/17 [History] traZODone HCL 150 mg PO HS 03/03/17 [History] Fenofibrate 160 mg PO DAILY 06/11/20 [History] Topiramate [Trokendi Xr] 100 mg PO DAILY 06/11/20 [History] Cholecalciferol [Vitamin D3 (125 Mcg = 5000 Iu)] 125 mcg PO DAILY 04/07/21 [History] Cyanocobalamin (Vitamin B-12) [Vitamin B-12] 1,000 mcg PO DAILY 04/07/21 [Hist ory] Pantoprazole Sodium [Protonix] 20 mg PO DAILY 04/07/21 [History] Propranolol HCl [Inderal] 60 mg PO DAILY 04/07/21 [History] metFORMIN HCL ER [Glucophage XR] 500 mg PO BID 04/07/21 [History] Brexpiprazole [Rexulti] 4 mg PO DAILY 06/02/21 [History] Nystatin 100,000 Unit/gm Powd [Mycostatin Powder] 1 applic TOPICAL BID PRN 06/02/21 [History] buPROPion SR [Wellbutrin SR] 300 mg PO HS 06/02/21 [History] cefTRIAXone [Rocephin] 2,000 mg IVP Q24HR #14 each 07/22/21 [Rx] Follow up Appointment(s)/Referral(s): [facility] [NON-STAFF] - As Needed [facility] [Primary Care Provider] - 1-2 days Giovany Walters MD [STAFF PHYSICIAN] - 07/31/21 1:40 pm Activity/Diet/Wound Care/Special Instructions: Wound Vac - [phone] - call if you have questions about the wound vac Local wound care to the abdominal wound with wound VAC black foam a continuous pressure 1 25 mmHg changed Wednesday. Follow-up with Dr. Lynch in the wound care center next week, call [phone] to make an appointment Discharge Disposition: HOME WITH HOME HEALTH SERVICES
[2021-07-22 14:18] VITALS: BP 111/72; PULSE 71; RESP 15; TEMP 97.6
--- NOTE | 2021-07-22 19:56 | P.PN ---
Subjective Progress Note Date: 07/22/21 - Reason for Consult Consult date: 07/20/21 Medical management - Chief Complaint Abdominal wound infection - History of Present Illness Patient is a 65-year-old female with a known history of diabetes type 2, hypo thyroidism, GERD, osteoarthritis, ADD/ADHD, anxiety/depression and recent history of incisional hernia repair with mesh on 05/14/2021 presents to ER with complaints of drainage from the abdominal wound and wound issues. Patient states that she had her tara removed about a month ago and while getting up from chair he started having "the wound. On the day of admission patient noticed some serosanguineous drainage from the wound and noted pink secretions on the abdominal binder. Came to ER for evaluation. On admission patient was tachycardic and temperature 100.3 and pulse ox 97% improvement. CT of the abdomen pelvis showed interval ventral abdominal wall hernia/practice diastasis repair with mesh. There is large fluid collection overlying the repair within the subcutaneous adipose layer spreading 23 cm craniocaudal and 4.7 cm thick. Patient is currently on vancomycin and cefepime. ID is on board. Laboratory data showed WBC 9.4 hemoglobin 11.1 and platelets 433, sodium 1:30 potassium 3.7 chloride 94 bicarb is 22 BUN 12 and creatinine 0.72 and blood sugar is 159, lactic acid was 2.4 on admission down to 0.9 Urinalysis negative for infection AST 150 ALT 109 alk phos 219 and albumin 3.2 07/21/2021 She is seen in follow-up this morning continues on IV antibiotics and also cont inues with wound VAC and local wound care. Patient admitted under surgical services for abdominal wall abscess. Cultures showing MSSA. Patient continues with overall weakness and will have physical therapy evaluate the patient as patient reportedly lives alone as well. Patient denying any chest pain or shortness of breath. Patient is afebrile. Patient denies any nausea or vomiting and is tolerating diet. Patient will need a PICC line and IV abx on discharge. 07/22/2021 Patient seen today and is receiving a PICC line today and will continue with IV abx in the form of ceftriaxone and home care is being arranged. Patient refused rehab. Patient to continue with wound vac and local wound care. Recommend close outpatient follow up with pcp and surgery. Patient is afebrile and denies chest pain or shortness of breath. Patient to discharge home today. Review of systems: Constitutional: No reports of fatigue, fever, or chills Cardiovascular: No reports of chest pain or palpitations Respiratory: No reports of shortness of breath or cough GI: No reports of nausea, vomiting, or diarrhea : No reports of dysuria or retention Neurovascular: reports of weakness All medications have been reviewed Physical exam: Patient is sitting up in the bed comfortably, no acute distress, awake alert and oriented.. HEENT: Normocephalic. Neck is supple. Pupils reactive. Nostrils clear. Oral cavity is moist. Neck reveals no JVD, carotid bruits, or thyromegaly. CHEST EXAMINATION: Trachea is central. Symmetrical expansion. Lung varner clear to auscultation and percussion. CARDIAC: Normal S1, S2 with no gallops. No murmurs ABDOMEN: Soft. Bowel sounds present. Abdominal woundvac in place..some minimal redness noted of the top abdominal wound. No organomegaly. No abdominal bruits. Extremities: reveal no edema. No clubbing or cyanosis Neurologically awake, alert, oriented x3 with well-coordinated movements. No focal deficits noted Skin: No rash or skin lesions. Psychiatric: Cooperative. Non-suicidal Musculoskeletal: No joint swelling or deformity. Normal range of motion. Assessment: Abdominal incisional wound infection with surrounding cellulitis and fluid collection with possible infected seroma. Status post removal of infected mesh. Lactic acidosis, improved MSSA on the wound cultures Status post incisional hernia repair with mesh placement on 05/14/2021. Diabetes type 2 cpt-[id number] Hypothyroidism Fibromyalgia Osteoarthritis ADD/ADHD, anxiety/depression DVT prophylaxis Full code Plan: Patient was being continued on antibiotics in the form of ceftriaxone and follow up with surgery, wound care and ID outpatient. Wound cultures showed MSSA. PiCC line today and has received wound vac. Further recommendations based on the clinical course. Continue with wound care. We will continue to follow along with you during hospitalization. Thank you for this consultation. Discharge this afternoon. The impression and plan of care has been dictated by Twyla Beth, Nurse Practitioner as directed. Dr. Donya MD I have performed a history and examination and MDM of this patient, discussed the same with the dictator, and agree with the dictator's assessment and plan as written ,documented as a scribe. Based on total visit time, I have performed more than 50% of the visit. Objective - Vital Signs Vital signs: Vital Signs Temp 98.2 F 07/22/21 08:00 Pulse 81 07/22/21 08:00 Resp 16 07/22/21 08:00 BP 97/58 07/22/21 08:00 Pulse Ox 97 07/22/21 08:00 FiO2 Intake & Output 07/21/21 07/22/21 07/22/21 18:59 06:59 18:59 Intake Total 1080 Balance 1080 Intake: Oral 1080 Other: Voiding Method Toilet Toilet # Voids 2 3 - Labs CBC & Chem 7: 07/21/21 04:54 07/21/21 04:54 Labs: Abnormal Lab Results - Last 24 Hours (Table) 07/21/21 07/21/21 07/21/21 Range/Units 04:54 11:22 21:25 WBC 11.09 H (4.50-10.00) X 10*3/uL RBC 3.64 L (4.10-5.20) X 10*6/uL Hgb 9.5 L (12.0-15.0) g/dL Hct 31.1 L (37.2-46.3) % MCH 26.1 L (27.0-32.0) pg MCHC 30.5 L (32.0-37.0) g/dL Plt Count 586 H (140-440) X 10*3/uL Plt Count Comment INCREASED A Metamyelocytes % 1 H (0-0) % Myelocytes % 6 H (0-0) % Monocytes # (Manual) 1.11 H (0.20-1.00) X 10*3/uL Basophils # (Manual) 0.11 H (0.00-0.10) X 10*3/uL POC Glucose (mg/dL) 122 H 107 H (75-99) mg/dL Microbiology - Last 24 Hours (Table) 07/18/21 06:16 Blood Culture - Preliminary Blood No Growth after 96 hours 07/18/21 06:00 Blood Culture - Preliminary Blood No Growth after 96 hours 07/19/21 10:42 Anaerobic Culture - Preliminary Abdomen 07/19/21 10:42 Gram Stain - Final Abdomen Wound Culture - Final Staphylococcus aureus
--- NOTE | 2021-07-23 15:36 | IR ---
EXAMINATION TYPE: IR cvc insert >=5 years DATE OF EXAM: 07/22/2021 COMPARISON: NONE CLINICAL HISTORY: Infection Needs long-term intravenous access for antibiotics. PROCEDURE: Hand hygiene obtained with soap and water and alcohol-based hand rub. After informed consent, the skin overlying the left basilic vein was localized with ultrasound and no fidelia to be compressible and patent. An ultrasound image was obtained and submitted on the patient's c vila. The overlying skin was prepped and draped and Lidocaine was used for local anesthesia. A skin gee was made with a scalpel. Access was gained to the vein under ultrasound guidance with a 21 gau ge needle and a 0.018 inch wire was advanced. Access site was dilated with Peel-Away sheath and cath eter tailored to the appropriate length and advanced such that the distal tip is at the cavoatrial ju nction. Spot image was obtained verifying placement. Catheter was fixed to the skin and a sterile d ressing was placed following hemostasis. Catheter was aspirated and flushed with saline. Patient wa s discharged in stable condition without complication. Maximal barrier technique is utilized. Ultras ound image is documented on the chart. Ultrasound used with sterile technique. Fluoro time and fluoroscopic images submitted to document procedure: 0.3 minutes fluoroscopy time, 72 intraoperative C-arm images IMPRESSION: STATUS POST ULTRASOUND AND FLUOROSCOPIC GUIDED PICC LINE PLACEMENT, READY FOR USE. THIS PROCEDURE WAS PERFORMED BY THE UNDERSIGNED.
== END 2021-07-22 15:05 | disposition home health service (06) | DRG 908 ==
LOC: EC 05:52 → 4SSUR 11:02
PROVIDERS: ADMIT Surgery; ATTEND Surgery
PROC: 0WPF0JZ Removal of Synthetic Substitute from Abdominal Wall, Open Approach (ICD-10-PCS; principal; 2021-07-19 09:15)
PROC: 02HV33Z Insertion of Infusion Device into Superior Vena Cava, Percutaneous Approach (ICD-10-PCS; 2021-07-22)
DX: T85.79XA Infection and inflammatory reaction due to other internal prosthetic devices, implants and grafts, initial encounter (principal); T81.32XA Disruption of internal operation (surgical) wound, not elsewhere classified, initial encounter; E87.2 Acidosis; L02.211 Cutaneous abscess of abdominal wall; E11.9 Type 2 diabetes mellitus without complications; E03.9 Hypothyroidism, unspecified; B95.61 Methicillin susceptible Staphylococcus aureus infection as the cause of diseases classified elsewhere; F32.A Depression, unspecified; G43.909 Migraine, unspecified, not intractable, without status migrainosus; F90.9 Attention-deficit hyperactivity disorder, unspecified type; F41.9 Anxiety disorder, unspecified; K21.9 Gastro-esophageal reflux disease without esophagitis; M79.7 Fibromyalgia; M19.90 Unspecified osteoarthritis, unspecified site; K57.90 Diverticulosis of intestine, part unspecified, without perforation or abscess without bleeding; M50.30 Other cervical disc degeneration, unspecified cervical region; Z79.890 Hormone replacement therapy; Z79.84 Long term (current) use of oral hypoglycemic drugs; Z79.899 Other long term (current) drug therapy; Z90.49 Acquired absence of other specified parts of digestive tract; Z87.19 Personal history of other diseases of the digestive system; Z87.39 Personal history of other diseases of the musculoskeletal system and connective tissue; Z90.89 Acquired absence of other organs; Z87.448 Personal history of other diseases of urinary system; Z98.890 Other specified postprocedural states; Z91.041 Radiographic dye allergy status; Y83.2 Surgical operation with anastomosis, bypass or graft as the cause of abnormal reaction of the patient, or of later complication, without mention of misadventure at the time of the procedure; Z88.0 Allergy status to penicillin; Z88.8 Allergy status to other drugs, medicaments and biological substances; Z82.3 Family history of stroke; Z80.51 Family history of malignant neoplasm of kidney; Z82.49 Family history of ischemic heart disease and other diseases of the circulatory system; Z83.3 Family history of diabetes mellitus
CPT/HCPCS: 36415; 36573; 74177; 80048; 80053; 81001; 82150; 82565; 83605; 83690; 85025; 85610; 85730; 87040; 87070; 87075; 87077; 87186; 87205; 88300; 96361; 96365; 96366; 96367; 96368; 96375; 96376; 99285

== ENCOUNTER 2021-07-26 10:31 | Emergency (ER) | payer MEDICARE, OTHER ==
[2021-07-26 10:37] VITALS: TEMP 97.8
--- NOTE | 2021-07-26 11:07 | ED ---
Extremity Problem HPI - General Chief complaint: Extremity Problem,Nontraumatic Stated complaint: Arm swelling Time Seen by Provider: 07/26/21 10:54 Source: patient Mode of arrival: ambulatory Limitations: no limitations - History of Present Illness Initial comments: Patient is a 65-year-old female who presents to the emergency department for evaluation of right arm swelling and redness. Patient states it started yesterday and progressively worsened. Patient states she feels a bump in her arm. States the bump itself is tender but otherwise patient does not feel arm pain. Patient denies history of DVT and PE. Denies blood thinner use. Patient was discharged from the hospital on 07/22/21 for ventral hernia mesh infection. She states she was poked several times in the right arm for IVs. Denies fever, chills, no other concerns. - Related Data Home Medications Medication Instructions Recorded Confirmed Levothyroxine Sodium [Synthroid] 125 mcg PO DAILY 03/03/17 07/18/21 Methylphenidate HCl [Ritalin] 20 mg PO TID 03/03/17 07/18/21 Multivitamins, Thera [Multivitamin 1 tab PO DAILY 03/03/17 07/18/21 (formulary)] [place]-3 Fatty Acids [[place]-3] 1,000 mg PO DAILY 03/03/17 07/18/21 buPROPion HCL [Wellbutrin SR] 150 mg PO DAILY 03/03/17 07/18/21 traZODone HCL 150 mg PO HS 03/03/17 07/18/21 Fenofibrate 160 mg PO DAILY 06/11/20 07/18/21 Topiramate [Trokendi Xr] 100 mg PO DAILY 06/11/20 07/18/21 Cholecalciferol [Vitamin D3 (125 125 mcg PO DAILY 04/07/21 07/18/21 Mcg = 5000 Iu)] Cyanocobalamin (Vitamin B-12) 1,000 mcg PO DAILY 04/07/21 07/18/21 [Vitamin B-12] Pantoprazole Sodium [Protonix] 20 mg PO DAILY 04/07/21 07/18/21 Propranolol HCl [Inderal] 60 mg PO DAILY 04/07/21 07/18/21 metFORMIN HCL ER [Glucophage XR] 500 mg PO BID 04/07/21 07/18/21 Brexpiprazole [Rexulti] 4 mg PO DAILY 06/02/21 07/18/21 Nystatin 100,000 Unit/gm Powd 1 applic TOPICAL BID PRN 06/02/21 07/18/21 [Mycostatin Powder] buPROPion SR [Wellbutrin SR] 300 mg PO HS 06/02/21 07/18/21 Previous Rx's Medication Instructions Recorded cefTRIAXone [Rocephin] 2,000 mg IVP Q24HR #14 each 07/22/21 Clopidogrel [Plavix] 75 mg PO DAILY #7 tablet 07/26/21 Allergies Allergy/AdvReac Type Severity Reaction Status Date / Time Iodinated Contrast Media Allergy Rash/Hives Verified 07/26/21 10:34 [Iodinated Contrast- Oral and IV Dye] sumatriptan [From Imitrex] Allergy THROAT Verified 07/26/21 10:34 SWELLING Penicillins AdvReac YEAST Verified 07/26/21 10:34 INFECTION Review of Systems ROS Statement: Those systems with pertinent positive or pertinent negative responses have been documented in the HPI. ROS Other: All systems not noted in ROS Statement are negative. Past Medical History Past Medical History: Diabetes Mellitus, Fibromyalgia, GERD/Reflux, Osteoarthritis (OA), Renal Disease, Thyroid Disorder Additional Past Medical History / Comment(s): diverticulosis, degenerative disc disease in her back and neck, migraines, and diverticular disease. Decreased renal function. History of Any Multi-Drug Resistant Organisms: None Reported Past Surgical History: Bowel Resection, Cholecystectomy, Tonsillectomy Additional Past Surgical History / Comment(s): Ganglion cyst removed from left ankle, rectal cysts removed, COLONOSCOPY, EGD, Past Anesthesia/Blood Transfusion Reactions: No Reported Reaction Past Psychological History: ADD/ADHD, Anxiety, Depression Smoking Status: Never smoker Past Alcohol Use History: None Reported Past Drug Use History: None Reported - Past Family History Mother Family Medical History: Cancer, CVA/TIA Additional Family Medical History / Comment(s): kidney cancer Father Family Medical History: Myocardial Infarction ([place]) Brother(s) Family Medical History: Diabetes Mellitus General Exam Limitations: no limitations General appearance: alert, in no apparent distress Head exam: Present: atraumatic, normocephalic, normal inspection Eye exam: Present: normal appearance, PERRL, EOMI. Absent: scleral icterus, conjunctival injection, periorbital swelling Respiratory exam: Present: normal lung sounds bilaterally. Absent: respiratory distress, wheezes, rales, rhonchi, stridor Cardiovascular Exam: Present: regular rate, normal rhythm, normal heart sounds. Absent: systolic murmur, diastolic murmur, rubs, gallop, clicks GI/Abdominal exam: Present: soft, normal bowel sounds, other (wound vac in place with no surrounding erythema, swelling, or drainage ). Absent: distended, tenderness, guarding, rebound, rigid Extremities exam: Present: normal capillary refill, other (minimal erythema over right lower ulnar arm over vein, mild swelling in this region with palpable nodule ) Neurological exam: Present: alert, oriented X3, CN II-XII intact Psychiatric exam: Present: normal affect, normal mood Skin exam: Present: warm, dry, intact. Absent: rash Course Vital Signs 07/26/21 07/26/21 10:34 12:10 Temperature 97.8 F Pulse Rate 93 81 Respiratory 18 16 Rate Blood Pressure 129/83 132/82 O2 Sat by Pulse 100 99 Oximetry Medical Decision Making - Medical Decision Making This is a 65-year-old female who presents for evaluation of right arm redness and swelling. Thorough history and examination were performed. Patient recently discharged on 07/22/21 and during her stay had several IVs put in to the right arm. There is minimal erythema over the right lower arm near the elbow in the ulnar region. There is mild swelling in this region with a palpable nodule that appears to be in the basilic vein. I will obtain ultrasound Doppler of the right arm to assess for any involvement in the deep venous system. Ultrasound shows superficial venous thrombosis in the right basilic vein with no evidence of DVT. Recent data to suggest that clots close to the deep venous system and/or of bigger size should be treated as a DVT. I did call ultrasound who was unable to obtain this information. Because this information could not be obtained my attending Dr. Sylvester recommended I discharge with Plavix and have patient follow-up with vascular surgery. Patient educated on superficial thrombophlebitis and DVT thoroughly. This is most likely superficial thrombophlebitis however patient will continue to take Plavix for 1 week or until evaluated by vascular surgery. She verbalizes understanding and is agreeable to this plan. Dr. Sylvester is my attending. Disposition Clinical Impression: Superficial thrombophlebitis Disposition: HOME SELF-CARE Condition: Good Instructions (If sedation given, give patient instructions): Superficial Thrombophlebitis (ED) Additional Instructions: You have a clot in your vein called superficial thrombophlebitis. It can be treated with elevation, compression, and anti-inflammatories. Because we are unsure how big the clot is or how close it is to your deep vein system, you will need to take the blood thinner prescribed as directed until you see vascular surgery. Please schedule an appointment with them in 1-2 days. Return to the emergency department if you experience new, concerning, or worsening symptoms Prescriptions: Clopidogrel [Plavix] 75 mg PO DAILY #7 tablet Is patient prescribed a controlled substance at d/c from ED?: No Referrals: [facility] [Primary Care Provider] - 1-2 days Yamileth Johnston DO [STAFF PHYSICIAN] - 1-2 days Time of Disposition: 12:47
[2021-07-26 12:12] VITALS: BP 132/82; PULSE 81; RESP 16
--- NOTE | 2021-07-26 12:30 | US ---
EXAMINATION TYPE: US venous doppler duplex UE RT DATE OF EXAM: 07/26/2021 COMPARISON: NONE CLINICAL HISTORY: swelling/pain/lump in arm, pt had IV elina. Swelling and lump in right forearm. SIDE PERFORMED: Right Grayscale, color Doppler, spectral Doppler imaging performed of the deep veins of the right upper ext remity Utilized portions the right internal jugular vein, subclavian vein on the right, right axillary vein, brachial veins, right basilic, right cephalic, right radial and right radial veins compress normally and show no abnormal luminal echoes with exception of the right basilic vein at the level of the elb ow where there is low-level internal echo and lack of compressibility, no color flow or waveform. Right Arm: Internal echoes seen within basilic vein at the elbow. Basilic vein does not appear to com press at this level. Little to no color flow seen within this segment. No evidence of DVT in veins im aged. IMPRESSION: Superficial venous thrombosis right basilic vein
[2021-07-26] MEDS ORDERED: CLOPIDOGREL 75 MG TAB PO STA (12:41)
== END 2021-07-26 13:34 | disposition home or self-care (01) ==
LOC: EC 10:31
DX: I80.9 Phlebitis and thrombophlebitis of unspecified site (principal); E11.9 Type 2 diabetes mellitus without complications; K21.9 Gastro-esophageal reflux disease without esophagitis; M79.7 Fibromyalgia; M19.90 Unspecified osteoarthritis, unspecified site; F32.A Depression, unspecified; F41.9 Anxiety disorder, unspecified; Z79.84 Long term (current) use of oral hypoglycemic drugs; Z79.890 Hormone replacement therapy; Z79.899 Other long term (current) drug therapy
CPT/HCPCS: 99283

== ENCOUNTER → 2024-01-18 | Day surgery (SDC) | payer MEDICARE, OTHER ==
[~2024-01-18] MED LIST: LIDOCAINE 1% INJ 10MG/ML (20 ML MDV) ONE; PROPOFOL 10 MG/ML 20 ML VIAL IV ONE
[2024-01-18 07:41] VITALS: RESP 16; TEMP 97.8
[2024-01-18] MEDS: IV FLUID CONTINUATION 1,000 ML IV ONE (07:45)
[2024-01-18] MEDS: LACTATED RINGERS 1,000 ML IV SCH (07:46)
[2024-01-18 07:48] LABS: Glucose,Whole Blood 125 mg/dL (70-110)
--- NOTE | 2024-01-18 09:00 | P.PCN ---
Date of Procedure: 01/18/24 Procedure(s) Performed: BRIEF HISTORY: Patient is a 68-year-old pleasant white female scheduled for an elective colonoscopy as a part of evaluation of change in bowel habits for the last few months duration. She has been having alternating diarrhea and constipation. Denies any rectal bleeding. PROCEDURE PERFORMED: Colonoscopy with random biopsies. PREOPERATIVE DIAGNOSIS: Change in bowel habits. IV sedation per Anesthesia. PROCEDURE: After informed consent was obtained, the patient, was brought into the endoscopy unit. IV sedation was administered by Anesthesia under continuous monitoring. Digital rectal examination was normal. Initially the Olympus CF-160 flexible video colonoscope was then inserted in the rectum, gradually advanced into the cecum without any difficulty. Careful examination was performed as the scope was gradually being withdrawn. Ileocecal valve and the appendiceal orifice were visualized and appeared normal. Prep was excellent. Mucosa of the cecum, ascending colon, transverse colon, descending colon, sigmoid colon, and rectum appeared normal. Diffuse diverticulosis seen. Random biopsies were done from the ascending and descending colon to rule out microscopic/collagenous colitis. Retroflexion was performed in the rectum and no lesions were seen. The patient tolerated the procedure well. IMPRESSION: Normal-appearing colon from rectum to cecum no evidence of colitis or colorectal neoplasia Diffuse scattered diverticulosis. RECOMMENDATIONS: Findings of this examination were discussed with the patient as well as her family. She was advised to follow-up with the biopsy results. She will be seen in the office in 2 to 3 weeks. Recommend repeat screening colonoscopy in 10 years.
[2024-01-18 09:32] VITALS: BP 128/70; PULSE 72
== END ==
LOC: ORWHC2ENDO 06:57
PROVIDERS: ATTEND Internal Medicine Gastroenterology
DX: K57.30 Diverticulosis of large intestine without perforation or abscess without bleeding (principal); K21.9 Gastro-esophageal reflux disease without esophagitis; E78.5 Hyperlipidemia, unspecified; E07.9 Disorder of thyroid, unspecified; E11.9 Type 2 diabetes mellitus without complications; N28.9 Disorder of kidney and ureter, unspecified; F41.9 Anxiety disorder, unspecified; F32.A Depression, unspecified; F90.9 Attention-deficit hyperactivity disorder, unspecified type; Z90.89 Acquired absence of other organs; Z91.041 Radiographic dye allergy status; Z88.0 Allergy status to penicillin; Z79.890 Hormone replacement therapy; Z79.84 Long term (current) use of oral hypoglycemic drugs; Z79.899 Other long term (current) drug therapy
CPT/HCPCS: 88305; 45380; J2003; J2704

== ENCOUNTER 2024-03-01 17:11 | Emergency (ER) | payer MEDICARE, OTHER ==
[2024-03-01 18:54] LABS: Basophils # (A) 0.1 k/uL (0-0.2); Basophils % (A) 1 %; Eosinophils # (A) 0.4 k/uL (0-0.7); Eosinophils % (A) 4 %; HCT 47.2 % (34.0-46.0); HGB 15.5 gm/dL (11.4-16.0); Lymphocytes # (A) 2.3 k/uL (1.0-4.8); Lymphocytes % (A) 22 %; MCH 28.8 pg (25.0-35.0); MCHC 32.7 g/dL (31.0-37.0); MCV 88.1 fL (80.0-100.0); Mean Platelet Volume 6.8; Monocytes # (A) 0.6 k/uL (0-1.0); Monocytes % (A) 5 %; Neutrophils # (A) 7.1 k/uL (1.3-7.7); Neutrophils % (A) 67 %; Platelet Count 433 k/uL (150-450); RBC 5.36 m/uL (3.80-5.40); WBC 10.6 k/uL (3.8-10.6)
[2024-03-01 19:05] VITALS: BP 114/74; PULSE 68; RESP 15; TEMP 98
--- NOTE | 2024-03-01 19:07 | ED ---
ENT HPI - General Chief complaint: ENT Stated complaint: sore throat, headache Time Seen by Provider: 03/01/24 19:04 Source: patient, RN notes reviewed Mode of arrival: ambulatory Limitations: no limitations - History of Present Illness Initial comments: 68-year-old female presented to the ER for evaluation of right temporal/jaw pain. Patient reports on Wednesday she started to feel a pulsating discomfort to her right jew. She states this slowly moved down the side of her face and is now underneath her right mandible. She states the pain is intermittent nature and will come and "jolts/shocks". She states she has taken [id number] extra strength Tylenol without relief. She does admit to a history of migraines but states this does not feel similar. She also reports mild sore throat but denies any cough, congestion, fevers, chills, rashes, chest pain, shortness of breath or weakness. She denies any visual disturbances, injuries/traumas, cavities or poor dentition on that side, pain with chewing, dizziness or lightheadedness. - Related Data Home Medications Medication Instructions Recorded Confirmed Levothyroxine Sodium [Synthroid] 1.37 mcg PO DAILY 03/03/17 01/18/24 Methylphenidate HCl [Ritalin] 20 mg PO TID 03/03/17 01/18/24 traZODone HCL 150 mg PO HS 03/03/17 01/18/24 Cyanocobalamin (Vitamin B-12) 1,000 mcg PO DAILY 04/07/21 01/18/24 [Vitamin B-12] Pantoprazole Sodium [Protonix] 20 mg PO DAILY 04/07/21 01/18/24 Propranolol HCl [Inderal] 60 mg PO DAILY 04/07/21 01/18/24 Brexpiprazole [Rexulti] 4 mg PO DAILY 06/02/21 01/18/24 Nystatin 100,000 Unit/gm Powd 1 applic TOPICAL BID PRN 06/02/21 01/18/24 [Mycostatin Powder] Sertraline HCl [Zoloft] 100 mg PO DAILY 03/31/22 01/18/24 Biotin [Mxnc-Sdcu-Fmufs] 10,000 mcg PO DAILY 01/17/24 01/18/24 DULoxetine HCL 40 mg PO BID 01/17/24 01/18/24 Fenofibrate [Lofibra] 160 mg PO DAILY 01/17/24 01/18/24 Krill/Om-3/Dha/Epa/Phospho/Ast 1,000 mg PO DAILY 01/17/24 01/18/24 [Krill Oil 600 mg Softgel] Magnesium Citrate and Oxide 250 mg PO DAILY 01/17/24 01/18/24 [Magnesium] Midodrine [ProAmatine] 10 mg PO TID PRN 01/17/24 01/18/24 Semaglutide [Ozempic] 1 mg SQ WEEKLY 01/17/24 01/18/24 Simvastatin [Zocor] 20 mg PO DAILY 01/17/24 01/18/24 Previous Rx's Medication Instructions Recorded carBAMazepine [TEGretol XR] 100 mg PO Q12H 15 Days #30 tab 03/01/24 Allergies Allergy/AdvReac Type Severity Reaction Status Date / Time Iodinated Contrast Media Allergy Rash/Hives Verified 01/18/24 07:21 [Iodinated Contrast- Oral and IV Dye] sumatriptan [From Imitrex] Allergy THROAT Verified 01/18/24 07:21 SWELLING Penicillins AdvReac YEAST Verified 01/18/24 07:21 INFECTION Review of Systems ROS Statement: Those systems with pertinent positive or pertinent negative responses have been documented in the HPI. ROS Other: All systems not noted in ROS Statement are negative. Past Medical History Past Medical History: Diabetes Mellitus, Fibromyalgia, GERD/Reflux, Hyperlipidemia, Osteoarthritis (OA), Renal Disease, Thyroid Disorder Additional Past Medical History / Comment(s): diverticulosis, degenerative disc disease in her back and neck, migraines, and diverticular disease. Decreased renal function. Wound pwkjrdy-[id number]-gwf seen in wound clinic History of Any Multi-Drug Resistant Organisms: MRSA Date of last positivie culture/infection: 05/2021 MDRO Source:: abdomen Past Surgical History: Bowel Resection, Cholecystectomy, Hernia Repair, Tonsillectomy Additional Past Surgical History / Comment(s): Ganglion cyst removed from left ankle, rectal cysts removed, COLONOSCOPY, EGD. Abdominal wall hernia repair 2021 complicated by dehiscence. Past Anesthesia/Blood Transfusion Reactions: No Reported Reaction Past Psychological History: ADD/ADHD, Anxiety, Depression Smoking Status: Never smoker - Past Family History Mother Family Medical History: Cancer, CVA/TIA Additional Family Medical History / Comment(s): kidney cancer Father Family Medical History: Myocardial Infarction (NM) Brother(s) Family Medical History: Diabetes Mellitus General Exam Limitations: no limitations General appearance: alert, in no apparent distress Head exam: Present: atraumatic, normocephalic, normal inspection, other (No temporal artery tenderness. No tenderness over trigeminal nerve) Eye exam: Present: normal appearance, PERRL, EOMI. Absent: scleral icterus, conjunctival injection, periorbital swelling Pupils: Present: normal accommodation ENT exam: Present: normal exam, normal oropharynx, mucous membranes moist, other (No TMJ pain or crepitus) Neck exam: Present: normal inspection. Absent: tenderness, meningismus, lymphadenopathy Respiratory exam: Present: normal lung sounds bilaterally. Absent: respiratory distress, wheezes, rales, rhonchi, stridor Cardiovascular Exam: Present: regular rate, normal rhythm, normal heart sounds. Absent: systolic murmur, diastolic murmur, rubs, gallop, clicks Neurological exam: Present: alert, oriented X3, CN II-XII intact Skin exam: Present: warm, dry, intact, normal color. Absent: rash Course Vital Signs 03/01/24 03/01/24 17:28 19:02 Temperature 97.9 F 98.0 F Pulse Rate 66 68 Respiratory 16 15 Rate Blood Pressure 118/80 114/74 O2 Sat by Pulse 98 95 Oximetry Medical Decision Making - Medical Decision Making Was pt. sent in by a medical professional or institution (, PA, [employer] WORK[employer], urgent care, hospital, or shelter...) When possible be specific @ -Patient sent by urgent care for evaluation of headache. Did you speak to anyone other than the patient for history (EMS, parent, family, police, friend...)? What history was obtained from this source @ -No Did you review nursing and triage notes (agree or disagree)? Why? @ -I reviewed and agree with nursing and triage notes Were old charts reviewed (outside hosp., previous admission, EMS record, old EKG, old radiological studies, urgent care reports/EKG's, shelter records)? Report findings @ -No old charts were reviewed Differential Diagnosis (chest pain, altered mental status, abdominal pain women, abdominal pain men, vaginal bleeding, weakness, fever, dyspnea, syncope, headache, dizziness, GI bleed, back pain, seizure, CVA, palpatations, mental health, musculoskeletal)? @ -[Differential Headache:Migraine, tension, cluster, carbon monoxide, central venous thrombosis, pension karma temporal arteritis, acute closure glaucoma, intercranial hemorrhage, mastoiditis, sinusitis, head injury, this is not meant to be an all-inclusive list. EKG interpreted by me (3pts min.). @ -None done X-rays interpreted by me (1pt min.). @ -[None done CT interpreted by me (1pt min.). @ -[CT brain and C-spine negative for acute intracranial hemorrhage or midline shift. No acute cervical spine fractures or dislocations. U/S interpreted by me (1pt. min.). @ -None done What testing was considered but not performed or refused? (CT, X-rays, U/S, labs)? Why? @ -None What meds were considered but not given or refused? Why? @ -None Did you discuss the management of the patient with other professionals (professionals i.e. , PA, [employer] WORK[employer], lab, RT, psych nurse, social work specialist, flow specialist, teacher, armor officer, outpatient case manager)? Give summary @ -No Was smoking cessation discussed for >3mins.? @ -No Was critical care preformed (if so, how long)? @ -No Were there social determinants of health that impacted care today? How? (Homelessness, low income, unemployed, alcoholism, drug addiction, transportation, low edu. Level, literacy, decrease access to med. care, shelter, rehab)? @ -No Was there de-escalation of care discussed even if they declined (Discuss DNR or withdrawal of care, Hospice)? DNR status @ -No What co-morbidities impacted this encounter? (DM, HTN, Smoking, COPD, CAD, Cancer, CVA, ARF, Chemo, Hep., AIDS, mental health diagnosis, sleep apnea, morbid obesity)? @ -None Was patient admitted / discharged? Hospital course, mention meds given and route, prescriptions, significant lab abnormalities, going to OR and other pertinent info. @ -[Discharge. 68-year-old female presented the ER for evaluation of right sided temporal/jaw pain x 3 days. Upon rooming, history and physical exam c ompleted. Vitals within acceptable limits. Patient in no signs of acute distress nontoxic-appearing. No rash or wound noted. No temporal artery, trigeminal nerve or TMJ tenderness. Cornea clear. Pupils equal round and reactive with intact extraocular motions. Oropharynx patent with no erythema. Dentition intact. There is no lymphadenopathy or tender lymph nodes. Given concern of temporal artery pain CT along with laboratory studies will be obtained, patient is agreeable. Laboratory studies obtained unimpressive. CRP less than 0.5. Viral swabs negative. Strep negative. CT brain/C-spine negative for acute process. Given patient's description of discomfort patient given of carbamazepine given in the ER for possible trigeminal neuralgia. Upon reevaluation, patient is eager for discharge. Patient will be treated for trigeminal neuralgia with carbamazepine and instructed to follow-up with PCP in the next 1 to 2 days for reevaluation. Strict return parameters discussed. Teddy michaud discharged in stable condition with follow-up to PCP. Patient verbally expressed understanding and agreement with care plan. Case discussed with ED attending, Dr. Angel. Undiagnosed new problem with uncertain prognosis? @ -No Drug Therapy requiring intensive monitoring for toxicity (Heparin, Nitro, Insulin, Cardizem)? @ -No Were any procedures done? @ -No Diagnosis/symptom? @ -Trigeminal neuralgia Acute, or Chronic, or Acute on Chronic? @ -Acute Uncomplicated (without systemic symptoms) or Complicated (systemic symptoms)? @ -Uncomplicated Side effects of treatment? @ -No Exacerbation, Progression, or Severe Exacerbation? @ -No Poses a threat to life or bodily function? How? (Chest pain, USA, NM, pneumonia, PE, COPD, DKA, ARF, appy, cholecystitis, CVA, Diverticulitis, Homicidal, Suicidal, threat to staff... and all critical care pts) @ -No - Lab Data Result diagrams: 03/01/24 18:44 03/01/24 18:44 Lab Results 03/01/24 03/01/24 03/01/24 Range/Units 18:44 18:44 18:44 WBC 10.6 (3.8-10.6) k/uL RBC 5.36 (3.80-5.40) m/uL Hgb 15.5 (11.4-16.0) gm/dL Hct 47.2 H (34.0-46.0) % MCV 88.1 (80.0-100.0) fL MCH 28.8 (25.0-35.0) pg MCHC 32.7 (31.0-37.0) g/dL RDW 13.0 (11.5-15.5) % Plt Count 433 (150-450) k/uL MPV 6.8 Neutrophils % 67 % Lymphocytes % 22 % Monocytes % 5 % Eosinophils % 4 % Basophils % 1 % Neutrophils # 7.1 (1.3-7.7) k/uL Lymphocytes # 2.3 (1.0-4.8) k/uL Monocytes # 0.6 (0-1.0) k/uL Eosinophils # 0.4 (0-0.7) k/uL Basophils # 0.1 (0-0.2) k/uL Sodium 137 (137-145) mmol/L Potassium 4.6 (3.5-5.1) mmol/L Chloride 100 (98-107) mmol/L Carbon Dioxide 24 (22-30) mmol/L Anion Gap 13 mmol/L BUN 35 H (7-17) mg/dL Creatinine 1.00 (0.52-1.04) mg/dL Est GFR (CKD-EPI)AfAm 67 (>60 ml/min/1.73 sqM) Est GFR (CKD-EPI)NonAf 58 (>60 ml/min/1.73 sqM) Glucose 115 H (74-99) mg/dL Calcium 10.9 H (8.4-10.2) mg/dL Total Bilirubin 0.4 (0.2-1.3) mg/dL AST 23 (14-36) U/L ALT 17 (4-34) U/L Alkaline Phosphatase 80 (38-126) U/L C-Reactive Protein <0.5 (<1.0) mg/dL Total Protein 8.2 (6.3-8.2) g/dL Albumin 4.6 (3.5-5.0) g/dL Influenza Type A (PCR) (Not Detectd) Influenza Type B (PCR) (Not Detectd) RSV (PCR) (Not Detectd) SARS-CoV-2 (PCR) (Not Detectd) Group A Strep (PCR) NOT DETECTED (Not Detectd) 03/01/24 Range/Units 18:44 WBC (3.8-10.6) k/uL RBC (3.80-5.40) m/uL Hgb (11.4-16.0) gm/dL Hct (34.0-46.0) % MCV (80.0-100.0) fL MCH (25.0-35.0) pg MCHC (31.0-37.0) g/dL RDW (11.5-15.5) % Plt Count (150-450) k/uL MPV Neutrophils % % Lymphocytes % % Monocytes % % Eosinophils % % Basophils % % Neutrophils # (1.3-7.7) k/uL Lymphocytes # (1.0-4.8) k/uL Monocytes # (0-1.0) k/uL Eosinophils # (0-0.7) k/uL Basophils # (0-0.2) k/uL Sodium (137-145) mmol/L Potassium (3.5-5.1) mmol/L Chloride (98-107) mmol/L Carbon Dioxide (22-30) mmol/L Anion Gap mmol/L BUN (7-17) mg/dL Creatinine (0.52-1.04) mg/dL Est GFR (CKD-EPI)AfAm (>60 ml/min/1.73 sqM) Est GFR (CKD-EPI)NonAf (>60 ml/min/1.73 sqM) Glucose (74-99) mg/dL Calcium (8.4-10.2) mg/dL Total Bilirubin (0.2-1.3) mg/dL AST (14-36) U/L ALT (4-34) U/L Alkaline Phosphatase (38-126) U/L C-Reactive Protein (<1.0) mg/dL Total Protein (6.3-8.2) g/dL Albumin (3.5-5.0) g/dL Influenza Type A (PCR) Not Detected (Not Detectd) Influenza Type B (PCR) Not Detected (Not Detectd) RSV (PCR) Not Detected (Not Detectd) SARS-CoV-2 (PCR) Not Detected (Not Detectd) Group A Strep (PCR) (Not Detectd) - Radiology Data Radiology results: report reviewed, image reviewed Disposition Clinical Impression: Trigeminal neuralgia Disposition: HOME SELF-CARE Condition: Stable Instructions (If sedation given, give patient instructions): Trigeminal Neuralgia (ED) Additional Instructions: Follow-up with Dr. Peñaloza in the next 1-2 days. Return to the ER for any new or worsening symptoms. Prescriptions: carBAMazepine [TEGretol XR] 100 mg PO Q12H 15 Days #30 tab Is patient prescribed a controlled substance at d/c from ED?: No Referrals: Jaret Peñaloza MD [Primary Care Provider] - 1-2 days Time of Disposition: 20:13
[2024-03-01 19:09] LABS: ALT 17 U/L (4-34); AST 23 U/L (14-36); African American GFR (CKD) 67 (>60 ml/min/1.73 sqM); Albumin 4.6 g/dL (3.5-5.0); Alkaline Phosphatase 80 U/L (38-126); Anion Gap 13 mmol/L; Blood Urea Nitrogen 35 mg/dL (7-17); C Reactive Protein <0.5 mg/dL (<1.0); Calcium 10.9 mg/dL (8.4-10.2); Carbon Dioxide 24 mmol/L (22-30); Chloride 100 mmol/L (98-107); Glucose 115 mg/dL (74-99); Non-African American GFR(CKD) 58 (>60 ml/min/1.73 sqM); Potassium 4.6 mmol/L (3.5-5.1); Sodium 137 mmol/L (137-145); Total Bilirubin 0.4 mg/dL (0.2-1.3); Total Protein 8.2 g/dL (6.3-8.2)
--- NOTE | 2024-03-01 19:09 | CT ---
EXAMINATION TYPE: CT brain pratibha sutton con DATE OF EXAM: 03/01/2024 COMPARISON: NONE HISTORY: Right sided jolting intermittent headache and neck pain. CT DLP: 1623.7 mGycm. Automated Exposure Control for Dose Reduction was Utilized. TECHNIQUE: CT scan of the head and cervical spine are performed without contrast. FINDINGS: There is no acute intracranial hemorrhage, mass effect, or midline shift identified. The ventricles and sulci are within normal limits in size. Mild low-attenuation in the periventricular white matter. The globes are intact and the visualized sinuses are clear. Cervical spine is visualized in its entirety from C1 through upper thoracic levels and demonstrates l evoconvex scoliosis centered in the upper thoracic spine without evidence of acute fracture or disloc ation. Prevertebral soft tissue appears within normal limits. The C1-C2 articulation is within norm al limits on the coronal images. Vertebral body and disc space heights are within normal limits. Spin al canal is preserved. Axial images show small-sized thyroid gland. Lung apices show no pneumothorax. IMPRESSION: 1. There is no acute fracture or dislocation evident in the cervical spine. 2. No acute intracranial hemorrhage or midline shift is seen. [facility], , 03/01/2024 7:07 PM
[2024-03-01 19:28] LABS: Influenza A Not Detected (Not Detectd); Influenza B Not Detected (Not Detectd); RSV Not Detected (Not Detectd)
[2024-03-02 03:58] LABS: Erythrocyte Sedimentation Rate 28 mm/Hr (0-30)
== END 2024-03-01 20:18 | disposition home or self-care (01) ==
LOC: EC 17:11
DX: G50.0 Trigeminal neuralgia (principal); Z88.0 Allergy status to penicillin; Z91.041 Radiographic dye allergy status; Z88.8 Allergy status to other drugs, medicaments and biological substances
CPT/HCPCS: 36415; 70450; 72125; 80053; 85025; 85652; 86140; 87636; 87651; 99284

== ENCOUNTER → 2024-06-22 | Outpatient (CLI) | payer MEDICARE, OTHER ==
--- NOTE | 2024-06-23 16:37 | CA ---
Transthoracic Echo Report Name: Sherri Mcgee Age: 68 Gender: F : 1955 Exam Date: 06/22/2024 13:25 Exam Location: [place] [facility] Ht (in): 62 Wt (lb): 209 Ordering Physician: Jaret Peñaloza MD Attending/Referring Phys: Jaret Peñaloza MD Circuit Breaker Mechanic Francia Gandara RDCS Procedure CPT: Indications: I65.23 stenosis Cardiac Hx: Family Hx Technical Quality: Fair Contrast 1: Total Dose (mL): Contrast 2: Total Dose (mL): MEASUREMENTS (Male / Female) Normal Values 2D ECHO LV Diastolic Diameter PLAX 3.8 cm 4.2 - 5.9 / 3.9 - 5.3 cm LV Systolic Diameter PLAX 2.4 cm IVS Diastolic Thickness 1.1 cm 0.6 - 1.0 / 0.6 - 0.9 cm LVPW Diastolic Thickness 1.0 cm 0.6 - 1.0 / 0.6 - 0.9 cm LV Relative Wall Thickness 0.6 RV Internal Dim ED PLAX 3.2 cm LA Systolic Diameter LX 3.3 cm 3.0 - 4.0 / 2.7 - 3.8 cm LV Diastolic Volume MOD BP 51.2 cm??? 67 - 155 / 56 - 104 cm??? LV Systolic Volume MOD BP 23.9 cm??? - 58 / 19 - 49 cm??? LV Ejection Fraction MOD BP 53.3 % >= 55 % LV Cardiac Index MOD BP 1008.5 cm???/min???m??? LV Diastolic Volume MOD 4C 60.0 cm??? LV Systolic Volume MOD 4C 28.3 cm??? LV Ejection Fraction MOD 4C 52.7 % LV Cardiac Index MOD 4C 1167.8 cm???/min???m??? LV Diastolic Length 4C 7.1 cm LV Systolic Length 4C 6.0 cm LV Diastolic Volume MOD 2C 38.1 cm??? LV Systolic Volume MOD 2C 17.4 cm??? LV Ejection Fraction MOD 2C 54.4 % LV Cardiac Index MOD 2C 763.8 cm???/min???m??? LV Diastolic Length 2C 6.1 cm LV Systolic Length 2C 5.0 cm LA Volume 19.1 cm??? 18 - 58 / 22 - 52 cm??? LA Volume Index 9.2 cm???/m??? 16 - 28 cm???/m??? M-MODE Aortic Root Diameter MM 3.4 cm AV Cusp Separation MM 2.0 cm DOPPLER AV Peak Velocity 110.3 cm/s AV Peak Gradient 4.9 mmHg MV Area PHT 3.2 cm??? Mitral E Point Velocity 62.7 cm/s Mitral A Point Velocity 88.5 cm/s Mitral E to A Ratio 0.7 MV Deceleration Time 233.7 ms TR Peak Velocity 235.6 cm/s TR Peak Gradient 22.2 mmHg Right Ventricular Systolic Press 26.4 mmHg FINDINGS Left Ventricle Left ventricular ejection fraction is estimated at 50-55 %. Small left ventricular cavity. Mildly increased septal wall thickness. Mildly increased posterior wall thickness. Mildly decreased left ventricular ejection fraction. Right Ventricle Normal right ventricular size. Right ventricular systolic pressure within normal limits. Right Atrium Normal right atrial size. No right atrial thrombus or mass seen. Left Atrium Normal left atrial size. No left atrial thrombus or mass present. Mitral Valve Structurally normal mitral valve. No mitral stenosis, regurgitation or prolapse. Aortic Valve Trileaflet aortic valve. No aortic valve stenosis or regurgitation. Tricuspid Valve Structurally normal tricuspid valve. Mild tricuspid regurgitation. Pulmonic Valve Structurally normal pulmonic valve. Trace pulmonic regurgitation. Pericardium No pericardial effusion. Aorta Normal size aortic root and proximal ascending aorta. CONCLUSIONS Normal LV size with preserved systolic function. No significant abnormality on the Doppler exam. No pericardial effusion Previewed by: Dr. Erica Arreguin MD (Electronically Signed) Final Date: 23 Jun 2024 16:36
== END | disposition home or self-care (01) ==
LOC: RADECHMAIN 13:08
PROVIDERS: ATTEND Internal Medicine
DX: I34.0 Nonrheumatic mitral (valve) insufficiency (principal); I07.1 Rheumatic tricuspid insufficiency
CPT/HCPCS: 93306

== ENCOUNTER → 2024-08-09 | Outpatient (CLI) | payer MEDICARE, OTHER ==
--- NOTE | 2024-08-10 08:38 | US ---
EXAMINATION TYPE: US carotid duplex BILAT DATE OF EXAM: 08/09/2024 COMPARISON: NONE CLINICAL INDICATION: Female, 68 years old with history of I65.23 CAROTID STENOSIS; Dizziness, stenosi s Additional History: .... TECHNIQUE: Grayscale, color Doppler and spectral Doppler evaluation of the bilateral carotid systems and vertebral arteries. Indirect Doppler criteria was utilized. FINDINGS: EXAM MEASUREMENTS: RIGHT: Peak Systolic Velocity (PSV) cm/sec ----- Right CCA: 45.3 ----- Right ICA: 60.9 ----- Right ECA: 44.6 ICA/CCA ratio: 1.3 RIGHT: End Diastole cm/sec ----- Right CCA: 12.5 ----- Right ICA: 17.5 ----- Right ECA: 0.0 LEFT: Peak Systolic Velocity (PSV) cm/sec ----- Left CCA: 47.5 ----- Left ICA: 58.1 ----- Left ECA: 52.4 ICA/CCA ratio: 1.2 LEFT: End Diastole cm/sec ----- Left CCA: 9.6 ----- Left ICA: 20.4 ----- Left ECA: 0.0 VERTEBRALS (direction of flow): Right Vertebral: Antegrade Left Vertebral: Antegrade Rhythm: Normal HAMMERER NOTES: No significant stenosis seen Color Doppler imaging shows patency with blood flow throughout the carotid artery. Spectral waveforms are within normal limits. IMPRESSION: No evidence for hemodynamically significant stenosis. Criteria for Assigning % of Stenosis / Diameter reduction (Estimation based on the indirect measurements of the internal carotid artery velocities (ICA PSV). 1. Normal (no stenosis)=ICA PSV < 180 cm/s: ratio < 2.0: ICA EDV<40 cm/s. 2. Less than 50% stenosis=ICA PSV < 180 cm/s: ratio < 2.0: ICA EDV<40 cm/s. 3. 50 to 69% stenosis=ICA PSV of 180 to 230 cm/s: ration 2.0 ? 4.0: ICA EDV 40-100 cm/s. PSV 125-180 cm/sec and ICA/CCA PSV Ratio ? 2.0 is also consistent with 50-69% stenosis 4. Greater than 70% stenosis to near occlusion= ICA PSV > 230 cm/s: ratio > 4.0: ICA EDV > 100 cm/s. 5. Near occlusion= ICA PSV velocities may be low or undetectable: variable ratio and ICA EDV. 6. Total occlusion=unable to detect flow. [facility], , 08/10/2024 8:36 AM
== END | disposition home or self-care (01) ==
LOC: RADUSWWP 15:49
PROVIDERS: ATTEND Internal Medicine
DX: I65.23 Occlusion and stenosis of bilateral carotid arteries (principal)
CPT/HCPCS: 93880